=== PATIENT | female | born 1960 | race Caucasian/White ===

== ENCOUNTER 2018-11-07 17:03 | Inpatient (IN) | payer OTHER ==
[~2018-11-07] VITALS: Ht 162.6 cm; Wt 80.4 kg
[2018-11-07] MEDS ORDERED: SODIUM CHLORIDE 0.9% 1000ML 1,000 ML IV STA ×2 (17:11→18:27)
--- NOTE | 2018-11-07 17:20 | NUR ---
RECEIVED REPORT FROM BENJAMIN Duffy RN THAT PT HAD ARRIVED BY EMS INTO ER RM 11. WHEN I ENTERED ROOM TO ASSESS PT RESPIRATORY ARRIVED AT THE SAME TIME. THEY EXPLAINED TO THE PT THAT THE HAD ORDERED AN ABG AND THE PROCEDURE OF OBTAINING IT. PT BECAME HOSTILE AND YELLED AT RESPIRATORY "YOU'RE NOT STICKING ME". AFTER REPEATED REFUSALS RESPIRATORY NOTIFIED DR. LAST. WHEN I WAS TRYING TO ASK PATIENT ABOUT WHAT BROUGHT HER TO THE ER AND DO MY ASSESSMENT PT WAS VERY NON-COMPLIANT. SHE WOULD NOT ANSWER MOST OF MY QUESTIONS AND GET ANGRY AND YELL AT ME FOR ASKING HER QUESTIONS. I EXPLAINED TO HER THAT WE CANNOT PROPERLY TREAT HER COMPLAINTS IF WE DON'T KNOW EXACTLY WHAT IS GOING ON. PT VERY RUDE TO STAFF.
[2018-11-07 17:29] LABS: BASOPHILS % 0.2 % (0.0-1.0); EOSINOPHILS # (AUTO) 0.1 (0.0-0.4); EOSINOPHILS % 0.3 % (0.0-6.0); HEMATOCRIT 49.4 % (34.2-44.1); HEMOGLOBIN 18.2 g/dL (12.0-16.0); LYMPHOCYTES # (AUTO) 2.7 (1.0-3.2); LYMPHOCYTES % 15.3 % (18.0-39.1); MEAN CORPUSCULAR HEMOGLOBIN 33.8 pg (28-32); MEAN CORPUSCULAR HGB CONC 36.8 g/dL (31-35); MEAN CORPUSCULAR VOLUME 91.8 fL (81-99); MONOCYTES # (AUTO) 1.5 (0.2-0.8); MONOCYTES % 8.3 % (4.4-11.3); NEUTROPHILS # (AUTO) 13.2 (2.1-6.9); NEUTROPHILS % 75.4 % (38.7-80.0); PLATELET COUNT 324 x10e3/uL (140-360); RED BLOOD COUNT 5.38 x10e6/uL (3.6-5.1); RED CELL DISTRIBUTION WIDTH 11.5 % (11.7-14.4)
[2018-11-07] MEDS ORDERED: ONDANSETRON HCL INJ 2MG/ML 2ML 2 MG/ML VIAL IV NR (17:30)
--- NOTE | 2018-11-07 17:30 | NUR ---
DR. LAST ASKED ME TO GET THE URINE NOW. SHE SAID THAT SHE NEEDS TO FIND OUT IF PT IS IN DKA SO THAT WE CAN PROPERLY TREAT HER. PT STILL REFUSING. SHE YELLS "I DON'T HAVE NOTHING IN ME". I EXPLAINED TO HER THE IMPORTANCE OF THE URINE AND SHE SAID "YA'LL JUST WANT TO DRUG TEST ME". I DISCUSSED WITH HER THE OPTIONS OF ME ASSISTING HER TO THE RESTROOM, USING A BEDPAN, OR A STRAIGHT CATH. SHE STILL YELLED AT ME AND SAID THAT SHE IS NOT GOING TO PEE RIGHT NOW
--- NOTE | 2018-11-07 17:45 | NUR ---
I SPENT SOME TIME PATIENTLY LISTENING TO PATIENT AND BEING VERY KIND TO HER AND SHE STARTED BEING MORE COMPLAINT AND RELAXED. HER MOOD HAS CHANGED NOW SINCE I'VE BEEN SHOWING HER KINDNESS, CONCERN AND RESPECT. PT IS NOW POLITE AND COOPERATIVE AND WILL TALK AND SMILE. SHE STILL SAYS SHE FILLS A LITTLE DIZZY
[2018-11-07 17:49] LABS: ALANINE AMINOTRANSFERASE 20 IU/L (0-55); ALBUMIN 3.8 g/dL (3.5-5.0); ALBUMIN/GLOBULIN RATIO 1.1 (0.8-2.0); ALKALINE PHOSPHATASE 102 IU/L (40-150); ANION GAP 24.2 mmol/L (8-16); BLOOD UREA NITROGEN 28 mg/dL (7-26); BUN/CREATININE RATIO 30 (6-25); CALCIUM 9.9 mg/dL (8.4-10.2); CARBON DIOXIDE 18 mmol/L (22-29); CHLORIDE 90 mmol/L (98-107); CREATININE, SERUM 0.92 mg/dL (0.57-1.11); EST GLOMERULAR FILTRATION RATE > 60 ML/MIN (60-); GLUCOSE 392 mg/dL (74-118); SODIUM 127 mmol/L (136-145)
[2018-11-07] MEDS ORDERED: METFORMIN HCL500 MG PO (17:49)
[2018-11-07 17:55] LABS: POTASSIUM 5.2 mmol/L (3.5-5.1)
[2018-11-07] MEDS ORDERED: MAGNESIUM SULF 1GRAM/DEXTROSE 100 ML IV PRN (18:15)
[2018-11-07] MEDS ORDERED: INSULIN REGULAR, HUMAN 3ML VL 100 UNIT in SODIUM CHLORIDE 0.9% 99 ML IV SCH ×2 (18:15)
[2018-11-07] MEDS ORDERED: POTASSIUM CHLORIDE 20MEQ/100ML 200 ML IV PRN (18:15)
[2018-11-07] MEDS: CEFTRIAXONE SOD 1 GM/NS 50 ML 50 ML IV SCH (18:30)
--- NOTE | 2018-11-07 19:15 | NUR ---
PT READY TO URINATE. I ASSISTED HER WITH THE BEDPAN AND OBTAINED THE URINE. SHE ASKED FOR A DIAPER TO BE PLACED AND WE TOOK HER OUT OF HER CLOTHES AND INTO A GOWN. PT IS VERY KIND AND RESPECTFUL OF STAFF NOW. SHE IS VERY COOPERATIVE AND WILL SMILE SOME WHEN WE TALK. REPORT WAS GIVEN TO SEVERO Chandra RN FOR CONTINUATION OF CARE.
[2018-11-07] MEDS: SODIUM CHLORIDE 0.9% 1000ML 1,000 ML IV SCH ×3 (19:29→23:52)
[2018-11-07 19:53] LABS: CLARITY,URINE CLEAR (CLEAR); COLOR,URINE YELLOW (YELLOW); LEUKOCYTE ESTERASE ,URINE NEGATIVE (NEGATIVE); NITRITE,URINE POSITIVE (NEGATIVE)
[2018-11-07 19:54] LABS: BILIRUBIN,URINE NEGATIVE (NEGATIVE); KETONES,URINE 2+ (NEGATIVE); PROTEIN,URINE DIPSTICK NEGATIVE (NEGATIVE); URINE UROBILINOGEN 0.2 mg/dL (0.2 - 1)
[2018-11-07] MEDS ORDERED: ACETAMINOPHEN 325 MG TAB PO PRN (20:00)
[2018-11-07 20:39] LABS: EPITHELIAL CELLS,URINE MODERATE /LPF
[2018-11-07 20:41] LABS: BACTERIA,URINE FEW /HPF; RBC,URINE 0-5 /HPF (0-5); WBC,URINE (MAN) 21-50 /HPF (0-5)
[2018-11-07 21:00] VITALS: BP 116/71
--- NOTE | 2018-11-07 21:11 | Diagnostic Imaging Report ---
Examination: Single AP view of the chest. COMPARISON: None. INDICATION: Hyperosmolar syndrome, dizziness, nausea and vomiting IMPRESSION: 1. Lines and Tubes: None 2. Lungs are grossly clear. No consolidation or effusion. 3. Cardiomediastinal silhouette is normal. Pulmonary vasculature is normal. 4. No acute bony abnormalities. Signed by: Dr. Jareth Hogan M.D. on 11/07/2018 9:08 PM
[2018-11-07 21:13] VITALS: BP 116/71
[2018-11-07 21:16] VITALS: BP 150/75
[2018-11-07] MEDS: DEXTROSE 5%/0.45% SOD CHL 1,000 ML IV SCH (21:28)
[2018-11-07 21:35] LABS: ANION GAP 11.7 mmol/L (8-16); BLOOD UREA NITROGEN 20 mg/dL (7-26); BUN/CREATININE RATIO 34 (6-25); CARBON DIOXIDE 18 mmol/L (22-29); CHLORIDE 105 mmol/L (98-107); CREATININE, SERUM 0.58 mg/dL (0.57-1.11); EST GLOMERULAR FILTRATION RATE > 60 ML/MIN (60-); GLUCOSE 125 mg/dL (74-118); POTASSIUM 3.7 mmol/L (3.5-5.1); SODIUM 131 mmol/L (136-145)
[2018-11-07 21:40] LABS: CALCIUM 6.8 mg/dL (8.4-10.2)
[2018-11-07 21:47] LABS: MAGNESIUM 1.9 MG/DL (1.3-2.1)
[2018-11-07 21:54] LABS: CREATINE KINASE MB 1.5 ng/mL (0-5.0)
--- NOTE | 2018-11-07 21:59 | Diagnostic Imaging Report ---
EXAMINATION: CT of the abdomen and pelvis with contrast. TECHNIQUE: Spiral CT images of the abdomen and pelvis were performed from the lung bases to the lesser trochanters after the intravenous administration of 100 cc of Isovue 370 and the oral administration of water. Coronal and sagittal reformatted images were obtained. COMPARISON: None. CLINICAL HISTORY:Hyperosmolar syndrome, nausea and vomiting for 9 days, dizziness, loss of appetite DISCUSSION: ABDOMEN/PELVIS: LOWER THORAX:Unremarkable. HEPATOBILIARY: No focal hepatic lesions. No intra or extrahepatic biliary ductal dilation. GALLBLADDER: No radio-opaque stones or sludge. No wall thickening. SPLEEN: No splenomegaly. PANCREAS: No focal masses or ductal dilatation. ADRENALS: No adrenal nodules. KIDNEYS/URETERS: No hydronephrosis or solid mass lesions. 1.6 cm fluid density simple cyst in the left superior to mid aspect (series 2, image 23). 1.1 x 1.5 x 2.4 cm irregular shaped hyperdensity in the inferior pole of the right kidney (series 2, image 36 and sagittal image 42). The right kidney measures 7.7 cm in length. The left kidney measures 10.4 cm in length. PELVIC ORGANS/BLADDER: Bladder is unremarkable. Uterus unremarkable. No adnexal masses. PERITONEUM/RETROPERITONEUM: No free air or fluid. LYMPH NODES: No intra-abdominal, retroperitoneal, pelvic or inguinal lymphadenopathy. VESSELS: The celiac trunk,superior and inferior mesenteric and bilateral renal arteries are patent The portal, superior mesenteric and splenic veins are patent. Atherosclerotic calcification of the abdominal aorta, aortic branches and iliac vessels. GI TRACT: No bowel dilation or evidence of obstruction. No pericolonic inflammatory changes. Appendix is well identified and normal in caliber. BONES AND SOFT TISSUE: No aggressive lytic lesions. Multilevel degenerative disc changes in the lumbosacral spine, with mild lateral subluxation at L4-L5, intervertebral disc space narrowing L3-S1. No soft tissue abnormalities. IMPRESSION: 1. No acute abdominopelvic abnormalities. No bowel dilation or evidence of obstruction. No wall thickening or surrounding inflammatory changes. 2. Indeterminate irregularly shaped hyperdensity in the inferior pole of the right kidney, which is smaller in size than the left. This may represent a calcification in area of renal atrophy. Excreted contrast is less likely, as no contrast is noted in bilateral collecting systems. Negative given history for prior surgical procedures Signed by: Ludwig RossD. on 11/07/2018 9:56 PM
[2018-11-07 22:00] VITALS: BP 135/71
[2018-11-07] MEDS ORDERED: CALCIUM GLUCONATE 10% INJ 13.95 MEQ in SODIUM CHLORIDE 0.9% 100 ML 100 ML IV ONE (22:45)
[2018-11-07] MEDS ORDERED: CALCIUM GLUCONATE 10% INJ 0.465 MEQ/ML VIAL ONE ×2 (22:58→23:18)
[2018-11-07] MEDS ORDERED: SODIUM CHLORIDE 0.9% 100 ML ONE (22:59)
[2018-11-07 23:00] VITALS: BP 108/54
[2018-11-07] MEDS ORDERED: CALCIUM GLUCONATE 10% INJ 0.465 MEQ/ML VIAL IV ONE (23:16)
[2018-11-07 23:21] LABS: ANION GAP 9.9 mmol/L (8-16); BLOOD UREA NITROGEN 22 mg/dL (7-26); BUN/CREATININE RATIO 33 (6-25); CALCIUM 7.8 mg/dL (8.4-10.2); CARBON DIOXIDE 25 mmol/L (22-29); CHLORIDE 99 mmol/L (98-107); CREATININE, SERUM 0.66 mg/dL (0.57-1.11); EST GLOMERULAR FILTRATION RATE > 60 ML/MIN (60-); GLUCOSE 172 mg/dL (74-118); POTASSIUM 3.9 mmol/L (3.5-5.1); SODIUM 130 mmol/L (136-145)
[2018-11-07] MEDS ORDERED: INSULIN GLARGINE 100 UNITS/ML VIAL SQ SCH (23:45)
[2018-11-07 23:59] VITALS: BP 120/59
[2018-11-08] VITALS (21 sets, daily range): BP systolic 93–166; BP diastolic 47–129
[2018-11-08] MEDS: SODIUM CHLORIDE 0.9% 1000ML 1,000 ML IV SCH ×4 (01:40→12:18)
[2018-11-08] MEDS: DEXTROSE 5%/0.45% SOD CHL 1,000 ML IV SCH (04:09)
[2018-11-08] MEDS ORDERED: DEXTROSE 50% SYRINGE 50 ML IV PRN ×2 (05:00→07:15)
[2018-11-08 05:10] LABS: BASOPHILS # (AUTO) 0.1 (0.0-0.1); BASOPHILS % 0.3 % (0.0-1.0); EOSINOPHILS # (AUTO) 0.2 (0.0-0.4); EOSINOPHILS % 1.1 % (0.0-6.0); HEMATOCRIT 42.2 % (34.2-44.1); LYMPHOCYTES # (AUTO) 3.1 (1.0-3.2); LYMPHOCYTES % 18.3 % (18.0-39.1); MEAN CORPUSCULAR HEMOGLOBIN 33.3 pg (28-32); MEAN CORPUSCULAR HGB CONC 35.1 g/dL (31-35); MEAN CORPUSCULAR VOLUME 94.8 fL (81-99); MONOCYTES # (AUTO) 1.6 (0.2-0.8); NEUTROPHILS # (AUTO) 12.1 (2.1-6.9); NEUTROPHILS % 70.7 % (38.7-80.0); PLATELET COUNT 267 x10e3/uL (140-360); RED BLOOD COUNT 4.45 x10e6/uL (3.6-5.1); RED CELL DISTRIBUTION WIDTH 11.4 % (11.7-14.4)
[2018-11-08] MEDS ORDERED: ONDANSETRON HCL INJ 2MG/ML 2ML 2 MG/ML VIAL IV PRN (05:15)
[2018-11-08 05:39] LABS: ANION GAP 12.2 mmol/L (8-16); BLOOD UREA NITROGEN 16 mg/dL (7-26); BUN/CREATININE RATIO 24 (6-25); CALCIUM 8.6 mg/dL (8.4-10.2); CARBON DIOXIDE 23 mmol/L (22-29); CHLORIDE 95 mmol/L (98-107); CREATININE, SERUM 0.67 mg/dL (0.57-1.11); EST GLOMERULAR FILTRATION RATE > 60 ML/MIN (60-); GLUCOSE 204 mg/dL (74-118); HEMOGLOBIN 14.8 g/dL (12.0-16.0); MAGNESIUM 1.5 MG/DL (1.3-2.1); POTASSIUM 4.2 mmol/L (3.5-5.1); SODIUM 126 mmol/L (136-145)
[2018-11-08] MEDS ORDERED: SODIUM CHLORIDE 0.9% 50ML 50 ML ONE (05:39)
[2018-11-08] MEDS ORDERED: IOPAMIDOL 370 MG/ML 200 ML INFUS..BTL INJ ONE (05:39)
[2018-11-08 06:13] LABS: CREATINE KINASE MB 1.8 ng/mL (0-5.0)
[2018-11-08] MEDS ORDERED: HYDRALAZINE HCL 20 MG/ML VIAL IV PRN (07:00)
--- NOTE | 2018-11-08 07:20 | NUR ---
Pt received from previous shift resting in bed. Alert and oriented x4 with saline lock patent to right hand and right AC. Oriented to staff and surrounding. Advised to press call archer if help needed. Will monitor
[2018-11-08] MEDS ORDERED: INSULIN REGULAR, HUMAN 100 UNIT/1 ML 3ML VIAL SQ SCH (07:30)
[2018-11-08 07:43] LABS: FREE T4 (FREE THYROXINE) 0.93 ng/dL (0.9-1.8); THYROID STIMULATING HORMONE 0.521 uIU/mL (0.350-4.940)
--- NOTE | 2018-11-08 08:35 | NUR ---
All meds given as ordered. Pt stated that she takes Methadone 90mg, and provided empty container to prove. Emotional support given. 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 Will monitor
[2018-11-08] MEDS: FAMOTIDINE 20 MG TAB PO SCH ×2 (08:38→16:23)
[2018-11-08] MEDS: INSULIN REGULAR, HUMAN 100 UNIT/1 ML 3ML VIAL SQ SCH ×4 (08:39→20:47)
[2018-11-08] MEDS: INSULIN LISPRO 100 UNIT/1 ML 3ML VIAL SQ SCH ×3 (08:39→17:03)
--- NOTE | 2018-11-08 09:36 | NUR ---
Spoke to Yumi MATUTE regarding pt's Methadone. Gave order for Pain management consult (Dr. Trevino). Awaiting call back from
[2018-11-08] MEDS: METHADONE HCL 10 MG TAB PO SCH (10:05)
[2018-11-08] MEDS ORDERED: SODIUM CHLORIDE 1 GM TAB PO SCH (11:00)
[2018-11-08] MEDS ORDERED: CHLORASEPTIC SPRAY 177 ML BTL MM PRN (11:00)
[2018-11-08] MEDS: SUCRALFATE 1 GM/10 ML SUSP PO SCH ×3 (11:07→20:46)
[2018-11-08] MEDS: NICOTINE 21 MG/EA PATCH TOP SCH (11:15)
[2018-11-08] MEDS: METOCLOPRAMIDE HCL 10 MG/2ML VIAL IV SCH ×3 (11:15→20:46)
[2018-11-08 12:00] LABS: INFLUENZAE A&B ANTIGEN (RAPID) NEGATIVE (NEGATIVE); STREPTOCOCCUS GRP A ANTIGEN NEGATIVE (NEGATIVE)
--- NOTE | 2018-11-08 12:09 | NUR ---
Swallow evaluation done. Pt able to swallow well, but throat is sore. Flu & Strep swabs negative. All meds given as ordered. Will monitor
[2018-11-08 13:00] LABS: ANION GAP 9.3 mmol/L (8-16); BLOOD UREA NITROGEN 15 mg/dL (7-26); BUN/CREATININE RATIO 19 (6-25); CARBON DIOXIDE 25 mmol/L (22-29); CHLORIDE 95 mmol/L (98-107); CREATININE, SERUM 0.81 mg/dL (0.57-1.11); EST GLOMERULAR FILTRATION RATE > 60 ML/MIN (60-); GLUCOSE 322 mg/dL (74-118); POTASSIUM 4.3 mmol/L (3.5-5.1); SODIUM 125 mmol/L (136-145)
[2018-11-08 13:08] LABS: CREATINE KINASE MB 1.6 ng/mL (0-5.0)
--- NOTE | 2018-11-08 13:30 | NUR ---
Dr. Ludwig Valerio's service notified regarding consult. Will follow up
[2018-11-08] MEDS: ALBUTEROL/IPRATROPIUM 3 ML NEB NEB SCH ×2 (15:18→19:50)
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
[2018-11-08] MEDS: CEFTRIAXONE SOD 1 GM/NS 50 ML 50 ML IV SCH (17:20)
--- NOTE | 2018-11-08 17:20 | NUR ---
Pt educated regarding insulin injection. Pt verbalized understanding of teaching but will require reinforcement. Will endorse to next shift
--- NOTE | 2018-11-08 20:29 | Consultation ---
DATE OF CONSULTATION: Pulmonary Critical Care Consultation CHIEF COMPLAINT: Nausea, vomiting, and acidosis. HISTORY OF PRESENT ILLNESS: The patient is a 58-year-old woman with a history of czn-iglffes-onhohcmam diabetes and COPD. She uses an inhaler at home. She came into the ER, complaining of nausea and vomiting for several days. She had abdominal pain. She did have a fever upon presentation. She was found to have an elevated blood sugar and an anion gap. She was given IV insulin along with IV fluids and felt better. She still says she feels weak, but has no abdominal pain. She has no nausea or vomiting. PAST SURGICAL HISTORY: Noncontributory. PAST MEDICAL HISTORY: 1. Chronic pain, requiring methadone. 2. Ugo-wovrnae-ypqzigdhf diabetes. FAMILY HISTORY: Noncontributory. SOCIAL HISTORY: The patient is an active smoker. She is not a drinker. ALLERGIES: SHE IS ALLERGIC TO CIPROFLOXACIN. REVIEW OF SYSTEMS: The patient denies any fever or headache. She has no neck pain. She has no sore throat. She has no chest pain. She did have some abdominal pain. She has no nausea or vomiting, she did have nausea and vomiting on admission. She has no leg edema. PHYSICAL EXAMINATION: VITAL SIGNS: The patient is afebrile. The blood pressure is 150/76 and the saturation is 96% on room air. The pulse is 90. HEENT: Shows no facial swelling or erythema. The nasal mucosa is normal. The oropharynx is normal. LYMPHATIC: Shows no submandibular, cervical, or supraclavicular adenopathy. NECK: Shows no JVD or thyromegaly. There is no nuchal rigidity. CARDIAC: Reveals a regular rate and rhythm with normal S1, S2. There are no murmurs or rubs heard. LUNGS: Auscultation of lungs reveals rhonchorous breath sounds bilaterally. There is no wheezing. ABDOMEN: Soft, nontender. There is no rebound or guarding. EXTREMITIES: Show no leg edema or calf tenderness. There is no cyanosis or clubbing. SKIN: Shows no rashes. NEUROLOGIC: Shows no focal abnormalities. RADIOGRAPHIC DATA: CT scan of the abdomen and pelvis shows no acute changes. Chest x-ray shows no acute disease. LABORATORY DATA: Sodium is 125, and JRY-ap-yaxmjaimel ratio is normal. The blood sugar is 322. There is no anion gap at this time. White blood cell count is 17, hemoglobin is 14.8, and platelet count is 267. IMPRESSION: 1. Diabetic ketoacidosis. 2. Possible anion gap acidosis related to metformin. 3. Gastroenteritis. 4. Hyponatremia. 5. Chronic pain, requiring methadone. PLAN: 1. The patient has been switched to subcutaneous insulin. 2. Continue IV fluids. 3. Hold metformin. 4. Continue antibiotics and await final culture results. 5. Continue methadone. Tom Grullon MD [facility]/MODL /[id number]
[2018-11-08] MEDS: INSULIN GLARGINE 100 UNITS/ML VIAL SQ SCH (20:49)
--- NOTE | 2018-11-08 21:14 | Consultation ---
DATE OF CONSULTATION: 11/08/2018 Endocrine consultation. This is a patient of Dr. Lee. HISTORY OF PRESENT ILLNESS: Thank you very much for referring this patient. This is a 58-year-old white female, who was referred to me for evaluation of uncontrolled diabetes mellitus and diabetic ketoacidosis. The patient reported a known diabetic for almost 5-6 years and takes metformin at home. She came to the hospital with history of nausea, vomiting, and in the emergency room, her blood sugar was found to be 392, her anion gap was 24.2, and the sodium was 127. The patient is a chronic smoker. She also has history of mild hypertension. PHYSICAL EXAMINATION: GENERAL: Today, the patient is alert, awake, little bit apprehensive. She has mild wheezing. VITAL SIGNS: Her heart rate is around 78 and blood pressure is 130/80 mmHg. HEENT EXAMINATION: Essentially unremarkable. Thyroid is palpable. Clinically, she is near euthyroid. CHEST: Bilateral vesicular breathing. No rales. CARDIOVASCULAR: First and second heart sounds. There is no third third or fourth heart sound. EXTREMITIES: The patient has evidence of diabetic sensory neuropathy in both lower extremities and mild epigastric tenderness. CLINICAL IMPRESSION: 1. Diabetes mellitus type 2. 2. Diabetic ketoacidosis. 3. Chronic obstructive pulmonary disease. 4. Chronic smoker. PLAN: At this time is to taper off the insulin drip. Start on the subcu insulin. Monitor HER blood sugars closely and adjust insulin dose. The patient needs extensive diabetic and dietary education as well. Thank you for referring this patient. I will be following this patient with you. MD CHRIS Marx/NESTOR /[id number] LANDY
--- NOTE | 2018-11-08 21:30 | NUR ---
received pt to room 289, no resp distress, pt requesting to go outside to smoke cigarette, pt informed of facility smoke policy, pt yelled "this is a hospital not a fdc ill just leave", informed pt that i will call doctor and be back to room, call light place in reach
--- NOTE | 2018-11-08 21:59 | NUR ---
On the phone with Mike Carrasco notifying him of pt wanting to leave facility when i received call from [facility] that there is a pt downstairs attempting to leave, went downstairs pt outside smoking cigarette with iv pole and [address], asked pt if she was going to come back inside pt stated "yeah when im done with my cigarette", informed pt that if she did intend on leaving i would need to remove ivs, pt stated "just leave me alone for a minute, ashley been cooped up in there for days i need some air", security with pt, informed
--- NOTE | 2018-11-08 22:08 | NUR ---
PT TRANSFERED TO RM 289, REPORT GIVEN TO NURSE SAHA. PT STABLE DENIES ANY CONCERNS AT THIS TIME.
--- NOTE | 2018-11-08 23:53 | NUR ---
information technology intern called that pt is off tele, went to pt room and pt had removed tele box and was in shower with IV pole, asked pt to let us know when she is done so that we may place tele back on pt., pt stated "ok"
[2018-11-09] VITALS: BP 124/66
[2018-11-09] MEDS: ALBUTEROL/IPRATROPIUM 3 ML NEB NEB SCH ×4 (01:12→19:45)
[2018-11-09] MEDS: SODIUM CHLORIDE 0.9% 1000ML 1,000 ML IV SCH (02:25)
--- NOTE | 2018-11-09 04:31 | NUR ---
pt refusing IV fluid stated "i dont need it so disconnect me", disconnected from IV fluid, call light in reach
--- NOTE | 2018-11-09 05:45 | NUR ---
pt off tele monitor, attempted to place tele monitor back on and pt refusing to have it placed
[2018-11-09 05:48] LABS: BASOPHILS % 0.1 % (0.0-1.0); EOSINOPHILS # (AUTO) 0.1 (0.0-0.4); EOSINOPHILS % 0.8 % (0.0-6.0); HEMATOCRIT 38.2 % (34.2-44.1); HEMOGLOBIN 13.9 g/dL (12.0-16.0); LYMPHOCYTES # (AUTO) 3.6 (1.0-3.2); LYMPHOCYTES % 23.9 % (18.0-39.1); MEAN CORPUSCULAR HEMOGLOBIN 33.8 pg (28-32); MEAN CORPUSCULAR HGB CONC 36.4 g/dL (31-35); MEAN CORPUSCULAR VOLUME 92.9 fL (81-99); MONOCYTES # (AUTO) 1.3 (0.2-0.8); MONOCYTES % 8.7 % (4.4-11.3); NEUTROPHILS % 65.9 % (38.7-80.0); PLATELET COUNT 294 x10e3/uL (140-360); RED BLOOD COUNT 4.11 x10e6/uL (3.6-5.1); RED CELL DISTRIBUTION WIDTH 11.4 % (11.7-14.4)
[2018-11-09 06:07] LABS: ANION GAP 9.6 mmol/L (8-16); BLOOD UREA NITROGEN 10 mg/dL (7-26); BUN/CREATININE RATIO 14 (6-25); CALCIUM 8.6 mg/dL (8.4-10.2); CARBON DIOXIDE 28 mmol/L (22-29); CHLORIDE 97 mmol/L (98-107); CREATININE, SERUM 0.72 mg/dL (0.57-1.11); EST GLOMERULAR FILTRATION RATE > 60 ML/MIN (60-); GLUCOSE 188 mg/dL (74-118); MAGNESIUM 1.6 MG/DL (1.3-2.1); POTASSIUM 3.6 mmol/L (3.5-5.1); SODIUM 131 mmol/L (136-145)
[2018-11-09 07:30] VITALS: BP 140/66
--- NOTE | 2018-11-09 07:30 | NUR ---
PT OUT OF ROOM
[2018-11-09] MEDS: METOCLOPRAMIDE HCL 10 MG/2ML VIAL IV SCH ×4 (08:00→20:36)
[2018-11-09] MEDS: INSULIN LISPRO 100 UNIT/1 ML 3ML VIAL SQ SCH ×3 (08:00→16:32)
[2018-11-09] MEDS: FAMOTIDINE 20 MG TAB PO SCH ×2 (08:20→16:53)
[2018-11-09] MEDS: SUCRALFATE 1 GM/10 ML SUSP PO SCH ×4 (08:20→20:36)
[2018-11-09] MEDS: METHADONE HCL 10 MG TAB PO SCH (08:24)
[2018-11-09] MEDS: NICOTINE 21 MG/EA PATCH TOP SCH (08:24)
[2018-11-09] MEDS: INSULIN REGULAR, HUMAN 100 UNIT/1 ML 3ML VIAL SQ SCH ×4 (08:26→21:00)
--- NOTE | 2018-11-09 08:30 | NUR ---
PT UP IN BED NO DISTRESS JNOTED,PT REFUSED NICODERM PATCH,STATED SHE WAS GONG OUT TO SMOKE EXPLAINED TO PT WE ARE A NON SMOKING FACILITY AND SHE COULD NOT SMOKE HERE,PT STATED SHE WILL GO SMOKE WHEN SHE WANTS WE COLUD NOT KEEP HER FROM IT,ALSO EXPLAINED SHE COULD NOT LEAVE THE PREMISES,STILL STATED SHE WOULD GO SMOKE.
[2018-11-09 08:58] VITALS: BP 140/66
[2018-11-09] MEDS ORDERED: SUCRALFATE1 G/10 ML PO (09:04)
[2018-11-09] MEDS ORDERED: REGLAN10 MG PO (09:04)
[2018-11-09] MEDS ORDERED: PANTOPRAZOLE SO40 MG PO (09:04)
[2018-11-09] MEDS ORDERED: PROAIR HFA INH8.5 GM INH (09:17)
[2018-11-09 12:19] VITALS: BP 138/60
--- NOTE | 2018-11-09 12:30 | NUR ---
PT AMBULATING DOWNSTAIRS TO SMOKE EXPLAINED TO PT SHE COULD NOT SMOKE ON PREMISES STAED IT WAS NOT AGAINST THE LAW AND SHE WAS GOING TO DO IT.
[2018-11-09 16:08] VITALS: BP 130/59
--- NOTE | 2018-11-09 16:13 | NUR ---
Nutrition Screen Note RD Recommendation for Physician: - Continue current diet - Diet education provided 11/09 Plan of Care: RD following, monitoring for tolerance and adequacy Nutrition reason for involvement: MD Consult- DM diet education Primary Diagnose(s): DKA, N/V, acidosis PMH: DM2, COPD Ht: 64 in Wt: 161 lb BMI: 27.7 kg/m2 IBW: [address] Assessment: (11/09) 58 YOF admitted for DKA, seen today per MD consult for DM diet education. Pt discussed during am rounds. Pt reports N/V has resolved and is eating well currently. Pt reports UBW of 160-180#, denies wt loss. Pt receptive to diet education at time of visit. Educated pt on CHO sources, CHO serving sizes, foods to avoid and appropriate substitutions. Handouts provided. Chart reviewed. Labs and meds reviewed, noted A1C of 11.4 yesterday. Will monitor and continue to follow. Current Diet: 1800 ADA Malnutrition Evaluation (11/09/18) The patient does not meet criteria for a specified degree of malnutrition at this time. Will re-evaluate at follow-up as appropriate. Diet Education Needs Assessment: Diet education indicated, provided 11/09/18. Learner(s): pt Barriers: none Cultural/Language Modifications: none Readiness: ready Method: handouts, discussion Topics: DM2 nutrition therapy Understanding/Compliance: fair Nutrition Care Level: Low Signed: Annika Nuñez RD, LD, [facility]
--- NOTE | 2018-11-09 16:15 | NUR ---
PT AMBULATING DOWN STAIRS
--- NOTE | 2018-11-09 16:55 | NUR ---
PT REFUSED SCHEDULED INSULIN,STATED BS TO LOW,EXPLAINED TO HER IT WAS NOT TO LOW IN WOULD HELP MAINTAIN NORMAL LEVEL ,STILL REFUSED,
[2018-11-09] MEDS: CEFTRIAXONE SOD 1 GM/NS 50 ML 50 ML IV SCH (18:15)
[2018-11-09 20:00] VITALS: BP 124/60
[2018-11-09] MEDS: INSULIN GLARGINE 100 UNITS/ML VIAL SQ SCH (21:00)
[2018-11-10] VITALS: BP 136/63
[2018-11-10 00:03] VITALS: BP 124/60
[2018-11-10] MEDS: ALBUTEROL/IPRATROPIUM 3 ML NEB NEB SCH ×3 (00:45→13:00)
[2018-11-10 04:00] VITALS: BP 130/60
[2018-11-10 06:08] LABS: BASOPHILS % 0.3 % (0.0-1.0); EOSINOPHILS # (AUTO) 0.1 (0.0-0.4); HEMATOCRIT 36.9 % (34.2-44.1); HEMOGLOBIN 12.6 g/dL (12.0-16.0); LYMPHOCYTES # (AUTO) 2.9 (1.0-3.2); LYMPHOCYTES % 25.4 % (18.0-39.1); MEAN CORPUSCULAR HEMOGLOBIN 33.1 pg (28-32); MEAN CORPUSCULAR HGB CONC 34.1 g/dL (31-35); MEAN CORPUSCULAR VOLUME 96.9 fL (81-99); MONOCYTES # (AUTO) 1.1 (0.2-0.8); MONOCYTES % 9.4 % (4.4-11.3); NEUTROPHILS # (AUTO) 7.2 (2.1-6.9); NEUTROPHILS % 63.5 % (38.7-80.0); PLATELET COUNT 291 x10e3/uL (140-360); RED BLOOD COUNT 3.81 x10e6/uL (3.6-5.1); RED CELL DISTRIBUTION WIDTH 11.6 % (11.7-14.4)
[2018-11-10 06:44] LABS: ANION GAP 9.6 mmol/L (8-16); BLOOD UREA NITROGEN 10 mg/dL (7-26); BUN/CREATININE RATIO 13 (6-25); CALCIUM 8.8 mg/dL (8.4-10.2); CARBON DIOXIDE 33 mmol/L (22-29); CHLORIDE 94 mmol/L (98-107); CREATININE, SERUM 0.75 mg/dL (0.57-1.11); EST GLOMERULAR FILTRATION RATE > 60 ML/MIN (60-); GLUCOSE 230 mg/dL (74-118); MAGNESIUM 1.7 MG/DL (1.3-2.1); POTASSIUM 3.6 mmol/L (3.5-5.1); SODIUM 133 mmol/L (136-145)
[2018-11-10 07:15] VITALS: BP 152/65
--- NOTE | 2018-11-10 07:15 | NUR ---
PATIENT AMBULATING IN HALLWAY TO GET COFFEE, NO DISTRESS NOTED. WILL CLOSELY MONITOR.
[2018-11-10] MEDS: INSULIN REGULAR, HUMAN 100 UNIT/1 ML 3ML VIAL SQ SCH ×2 (07:30→11:30)
[2018-11-10 07:32] VITALS: BP 152/65
[2018-11-10] MEDS: METOCLOPRAMIDE HCL 10 MG/2ML VIAL IV SCH ×2 (07:50→11:30)
[2018-11-10] MEDS: FAMOTIDINE 20 MG TAB PO SCH (07:50)
[2018-11-10] MEDS: SUCRALFATE 1 GM/10 ML SUSP PO SCH ×2 (07:50→11:30)
[2018-11-10] MEDS: INSULIN LISPRO 100 UNIT/1 ML 3ML VIAL SQ SCH ×2 (08:00→12:00)
[2018-11-10] MEDS: METHADONE HCL 10 MG TAB PO SCH (08:00)
[2018-11-10] MEDS: NICOTINE 21 MG/EA PATCH TOP SCH (09:00)
[2018-11-10] MEDS ORDERED: BACTRIM DS TAB1 EACH PO (09:29)
[2018-11-10] MEDS ORDERED: ONDANSETRON HCL 4 MG ORAL DISINTEGRATING TAB PO PRN (10:15)
[2018-11-10 11:04] VITALS: BP 179/73
--- NOTE | 2018-11-10 12:04 | NUR ---
PATIENT HAS A DISCHARGE ORDER. AWAITING FOR DR ANGELES TO SEE PATIENT AND GIVE PRESCRIPTION. SITTING AT BED SIDE EATING LUNCH, CALL LIGHT AT REACH.
--- NOTE | 2018-11-10 14:10 | NUR ---
DR ANGELES IN TO SEE PATIENT, PRESCRIPTIONS RECEIVED. PATIENT EDUCATED ON INSULIN SELF ADMINISTRATION WITH RETURN DEMONSTRATION.
--- NOTE | 2018-11-10 14:45 | NUR ---
PATIENT DISCHARGED HOME. DISCHARGE INSTRUCTIONS, PRESCRIPTIONS, AND FOLLOW UP GIVEN TO PATIENT, SHE VERBALIZED UNDERSTANDING. ALL PERSONAL ITEMS TAKEN WITH PATIENT. IV TO RIGHT AC REMOVED WITH TIP INTACT. LEFT UNIT PER WHEEL CHAIR TO FRONT LOBBY IN STABLE CONDITION.
[2018-11-10] MEDS ORDERED: INSULIN GLARGINE 100 UNITS/ML VIAL SQ SCH (21:00)
--- NOTE | 2018-11-11 05:02 | Discharge Summary ---
ADMISSION DIAGNOSES: Diabetic ketoacidosis, chronic obstructive pulmonary disease, urinary tract infection, hyponatremia, nausea, vomiting with sore throat, tobacco use. DISCHARGE DIAGNOSES: Diabetic ketoacidosis, chronic obstructive pulmonary disease, urinary tract infection, hyponatremia, nausea, vomiting with sore throat, tobacco use, urinary tract infection with Enterobacter. Rule out strep. Rule out flu. HISTORY: The patient has a history of type 2 diabetes, COPD, and CVA with left-sided deficit, which has resolved. SURGICAL HISTORY: None. FAMILY HISTORY: The patient's dad had diabetes. The patient's dad and brother had a stroke. SOCIAL HISTORY: The patient admits to smoking 2 packs of cigarettes a day for 47 years. She also admits to a history of addiction to pills, so she uses methadone currently. HOSPITAL COURSE: A 58-year-old female complains of nausea, vomiting, chills, and sore throat for 9 days. She denies fever, diarrhea, dysuria, and hematuria. On admission, patient's blood sugar was 392 and her anion gap was 24. She was initially put on an insulin drip. Endocrinology was consulted. She was given IV fluids. She was started on Rocephin for UTI. Flu was negative. Strep was negative. Blood cultures negative. Urine culture came back positive for Enterobacter. The patient was started on Pepcid, sucralfate, Reglan, and Chloraseptic for her abdominal pain and nausea as well as sore throat. She says both helped immensely. The patient was weaned off the IV insulin and was started on subcu insulin per Endocrinology. The patient continued to change her story throughout hospitalization about her diagnoses. She appeared to get very agitated at times and did not listen to recommendations. She refused medication. She went outside to smoke despite hospital policies. She was very confrontational. At time of discharge, the patient was given a prescription for albuterol inhaler, Reglan, Protonix, sucralfate, Bactrim DS, Lantus 35 units at bedtime, and Humalog 15 units with each meal per Endocrinology recommendation. The patient understands discharge instructions and agrees to plan. Vital signs stable, patient afebrile. Dictated by Yumi Campbell NP MD LEORA Cox/MODL /[id number]
== END 2018-11-10 14:53 | disposition home or self-care (01) | DRG 638 ==
LOC: ER 17:03 → ERHOLD 19:49 → ICU 21:15 → MED/SURG3 11-08 21:43
PROVIDERS: ADMIT Internal Medicine; ATTEND Internal Medicine
DX: E11.10 Type 2 diabetes mellitus with ketoacidosis without coma (principal); I69.354 Hemiplegia and hemiparesis following cerebral infarction affecting left non-dominant side; N39.0 Urinary tract infection, site not specified; E87.1 Hypo-osmolality and hyponatremia; K52.9 Noninfective gastroenteritis and colitis, unspecified; F17.210 Nicotine dependence, cigarettes, uncomplicated; Z88.1 Allergy status to other antibiotic agents; J44.9 Chronic obstructive pulmonary disease, unspecified; G89.4 Chronic pain syndrome; Z79.891 Long term (current) use of opiate analgesic; Z79.84 Long term (current) use of oral hypoglycemic drugs; I10 Essential (primary) hypertension; E11.42 Type 2 diabetes mellitus with diabetic polyneuropathy; B96.89 Other specified bacterial agents as the cause of diseases classified elsewhere; J02.9 Acute pharyngitis, unspecified
CPT/HCPCS: 36415; 71045; 74177; 80048; 80053; 81001; 82550; 82553; 82948; 83036; 83518; 83690; 83735; 83880; 84439; 84443; 84484; 85025; 87040; 87070; 87086; 87186; 87400; 94640; 96361; 99285; J0610; J0696; J1815; J2405; J2765; J7030; J7050; Q9967

== ENCOUNTER 2019-01-02 21:16 | Emergency (ER) | payer OTHER ==
[~2019-01-02] VITALS: Ht 162.6 cm; Wt 80.3 kg
[~2019-01-02 21:16] MED LIST: BACTRIM DS TAB1 EACH PO; METFORMIN HCL500 MG PO; PANTOPRAZOLE SO40 MG PO; PROAIR HFA INH8.5 GM INH; REGLAN10 MG PO; SUCRALFATE1 G/10 ML PO
--- OUTSIDE RECORDS SUMMARY | 2019-01-02 21:19 | XMS REPORT ---
[facility] Address Unknown Phone Unavailable Care Team Providers Care Tc Operator Name Role Phone DILMA IRVING Unavailable Unavailable Problems This patient has no known problems. Allergies, Adverse Reactions, Alerts This patient has no known allergies or adverse reactions. Medications This patient has no known medications. Results Test Description Test Time Test Comments Text Results Atomic Results Result Comments CT ABDOMEN/PELVIS W 2018-11-07 21:46:00 [place] [address] Patient Name: AILYN ULRICH MR #: [id number] : 1960 Age/Sex: 58/F Req #: [id number] Adm Physician: DILMA IRVING MD Ordered by: JACQUELINE MENJIVAR MD Report #: [id number] Location: ICU Room/Bed: ICU [facility] Procedure: [id number] CT/CT ABDOMEN/PELVIS W Exam Date: 11/07/18 Exam Time: 2044 REPORT STATUS: Signed EXAMINATION: CT of the abdomen and pelvis with contrast . TECHNIQUE: Spiral CT images of the abdomen and pelvis were performed from the lung bases to the lesser trochanters after the intravenous administration of 100 cc of Isovue 370 and the oral administration of water. Coronal and sagittal reformatted images were obtained. COMPARISON: None. CLINICAL HISTORY:Hyperosmolar syndrome, nausea and vomiting for 9 days, dizziness, loss of appetite DISCUSSION: ABDOMEN/PELVIS: LOWER THORAX:Unremarkable. HEPATOBILIARY: No focal hepatic lesions. No intra or extrahepatic biliary ductal dilation. GALLBLADDER: No radio- opaque stones or sludge. No wall thickening. SPLEEN: No splenomegaly. PANCREAS: No focal masses or ductal dilatation. ADRENALS: No adrenal nodules. KIDNEYS/URETERS: No hydronephrosis or solid mass lesions. 1.6 cm fluid density simple cyst in the left superior to mid aspect (series 2, image 23). 1.1 x 1.5 x 2.4 cm irregular shaped hyperdensity in the inferior pole of the right kidney (series 2, image 36 and sagittal image 42). The right kidney measures 7.7 cm in length. The left kidney measures 10.4 cm in length. PELVIC ORGANS/BLADDER: Bladder is unremarkable. Uterus unremarkable. No adnexal masses. PERITONEUM/RETROPERITONEUM: No free air or fluid. LYMPH NODES: No intra-abdominal, retroperitoneal, pelvic or inguinal lymphadenopathy. VESSELS: The celiac trunk,superior and inferior mesenteric and bilateral renal arteries are patent The portal, superior mesenteric and splenic veins are patent. Atherosclerotic calcification of the abdominal aorta, aortic branches and iliac vessels. GI TRACT: No bowel dilation or evidence of obstruction. No pericolonic inflammatory changes. Appendix is well identified and normal in caliber. BONES AND SOFT TISSUE: No aggressive lytic lesions. Multilevel degenerative disc changes in the lumbosacral spine, with mild lateral subluxation at L4-L5, intervertebral disc space narrowing L3-S1. No soft tissue abnormalities. IMPRESSION: 1. No acute abdominopelvic abnormalities. No bowel dilation or evidence of obstruction. No wall thickening or surrounding inflammatory changes. 2. Indeterminate irregularly shaped hyperdensity in the inferior pole of the right kidney, which is smaller in size than the left. This may represent a calcification in area of renal atrophy. Excreted contrast is less likely, as no contrast is noted in bilateral collecting systems. Negative given history for prior surgical procedures Signed by: Dr. Salomón Hogan M.D. on 11/07/2018 9:56 PM Dictated By: SALOMÓN HOGAN MD 55 Transcribed By: SANDHYA on 11/07/182155 COPY TO: JACQUELINE MENJIVAR MD CHEST SINGLE (PORTABLE) 2018-11-07 21:07:00 [address], [place] [address] Patient Name: AILYN ULRICH MR #: [id number] : 1960 Age/Sex: 58/F Req #: [id number] Adm Physician: DILMA IRVING MD Ordered by: JACQUELINE MENJIVAR MD Report #: [id number] Location: [facility] Room/Bed: [place] [address] Procedure: [id number] DX/CHEST SINGLE (PORTABLE) Exam Date: 11/07/18 Exam Time: 2049 REPORT STATUS: Signed Examination: Single AP view of the chest. COMP ARISON: None. INDICATION: Hyperosmolar syndrome, dizziness, nausea and vomiting IMPRESSION: 1. Lines and Tubes: None 2. Lungs are grossly clear. No consolidation or effusion. 3. Cardiomediastinal silhouette is normal. Pulmonary vasculature is normal. 4. No acute bony abnormalities. Signed by: Dr. Salomón Hogan M.D. on 11/07/2018 9:08 PM Dictated By: SALOMÓN HOGAN MD 07 Transcribed By: SANDHYA on 11/07/182107 COPY TO: JACQUELINE MENJIVAR MD
[2019-01-02] MEDS ORDERED: SODIUM CHLORIDE 0.9% 1000ML 1,000 ML IV ONE (21:30)
[2019-01-02 22:02] LABS: BASOPHILS % 0.3 % (0.0-1.0); EOSINOPHILS % 0.1 % (0.0-6.0); HEMATOCRIT 44.5 % (34.2-44.1); HEMOGLOBIN 15.7 g/dL (12.0-16.0); LYMPHOCYTES # (AUTO) 2.1 (1.0-3.2); LYMPHOCYTES % 14.1 % (18.0-39.1); MEAN CORPUSCULAR HEMOGLOBIN 34.1 pg (28-32); MEAN CORPUSCULAR HGB CONC 35.3 g/dL (31-35); MEAN CORPUSCULAR VOLUME 96.5 fL (81-99); MONOCYTES # (AUTO) 0.9 (0.2-0.8); MONOCYTES % 5.9 % (4.4-11.3); NEUTROPHILS # (AUTO) 11.6 (2.1-6.9); NEUTROPHILS % 79.3 % (38.7-80.0); PLATELET COUNT 307 x10e3/uL (140-360); RED BLOOD COUNT 4.61 x10e6/uL (3.6-5.1); RED CELL DISTRIBUTION WIDTH 11.7 % (11.7-14.4)
[2019-01-02 22:20] LABS: ALANINE AMINOTRANSFERASE 17 IU/L (0-55); ALBUMIN 4.2 g/dL (3.5-5.0); ALBUMIN/GLOBULIN RATIO 1.2 (0.8-2.0); ALKALINE PHOSPHATASE 74 IU/L (40-150); ANION GAP 21.7 mmol/L (8-16); BLOOD UREA NITROGEN 12 mg/dL (7-26); BUN/CREATININE RATIO 14 (6-25); CALCIUM 9.5 mg/dL (8.4-10.2); CARBON DIOXIDE 23 mmol/L (22-29); CHLORIDE 93 mmol/L (98-107); CREATINE KINASE 99 IU/L (29-168); CREATININE, SERUM 0.84 mg/dL (0.57-1.11); EST GLOMERULAR FILTRATION RATE > 60 ML/MIN (60-); GLUCOSE 283 mg/dL (74-118); POTASSIUM 3.7 mmol/L (3.5-5.1); SODIUM 134 mmol/L (136-145)
[2019-01-02 22:21] LABS: AMYLASE 27 U/L (25-125); LIPASE 8 U/L (8-78)
[2019-01-02 22:53] LABS: BILIRUBIN,URINE NEGATIVE (NEGATIVE); CLARITY,URINE CLOUDY (CLEAR); COLOR,URINE YELLOW (YELLOW); LEUKOCYTE ESTERASE ,URINE NEGATIVE (NEGATIVE); NITRITE,URINE POSITIVE (NEGATIVE); URINE UROBILINOGEN 0.2 mg/dL (0.2 - 1)
[2019-01-02 22:56] LABS: KETONES,URINE 3+ (NEGATIVE); PROTEIN,URINE DIPSTICK 3+ (NEGATIVE)
[2019-01-02 23:12] LABS: BACTERIA,URINE MANY /HPF; EPITHELIAL CELLS,URINE FEW /LPF; WBC,URINE (MAN) >50 /HPF (0-5)
--- NOTE | 2019-01-02 23:44 | Diagnostic Imaging Report ---
EXAM: Chest and abdominal radiographs 2 views INDICATION: Nausea, vomiting COMPARISON: Abdominal CT 11/07/2018. FINDINGS: Lungs are well expanded and clear. No consolidations. Normal heart size. Aortic arch calcifications. The thoracic bones and soft tissues are unremarkable. No pleural effusion or pneumothorax. A 3.1 cm calculus in the right mid abdomen corresponds to the right renal calculus identified on abdominal CT 11/07/2018. No dilated loops of small bowel. No abnormal soft tissue masses. Nonobstructive bowel gas pattern. No pneumoperitoneum. There are degenerative changes in the lumbar spine and pelvis. IMPRESSION: 1. No acute thoracic abnormality. 2. A 3.1 cm right renal calculus also seen on abdominal CT 11/07/2018. 3. Nonobstructive bowel gas pattern. Signed by: Jhonny Westbrook DO on 01/02/2019 11:40 PM
[2019-01-03] MEDS ORDERED: CEFTRIAXONE SOD 1 GM/NS 50 ML 50 ML IV ONE
== END 2019-01-03 00:30 | disposition home or self-care (01) ==
LOC: ER 21:16
DX: R11.2 Nausea with vomiting, unspecified (principal); N30.90 Cystitis, unspecified without hematuria; E11.9 Type 2 diabetes mellitus without complications; F17.210 Nicotine dependence, cigarettes, uncomplicated
CPT/HCPCS: 36415; 74022; 80053; 81001; 82150; 82550; 82553; 83690; 84484; 85025; 93005; 96365; 99283; J0696; J7030

== ENCOUNTER 2020-02-13 04:58 | Emergency (ER) | payer OTHER ==
[~2020-02-13] VITALS: Ht 162.6 cm; Wt 80.3 kg
[2020-02-13] MEDS ORDERED: SODIUM CHLORIDE 0.9% 1000ML 1,000 ML IV STA ×3 (05:06→05:59)
[2020-02-13] MEDS ORDERED: ONDANSETRON HCL INJ 2MG/ML 2ML 2 MG/ML VIAL IV STA (05:06)
--- OUTSIDE RECORDS SUMMARY | 2020-02-13 05:23 | XMS REPORT | Continuity of Care Document ---
Author Author [facility] t Organization [facility] Address [address] [place] [address] Phone Unavailable Care Team Providers Care Blending Coordinator Name Role Phone NO, PCP PCP Unavailable Rich BEST Attphys Unavailable DILMA IRVING Attphys Unavailable DILMA IRVING Admphys Unavailable Payers Payer Name Policy Type Policy Number Effective Date Expiration Date Engagor [id number] 2018 00:00 :00 [facility] Problems Condition Name Condition Details Condition Category Status Onset Date Resolution Date Last Treatment Date Treating Clinician Comments Source 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 Ordering Clinician Indication Dosage Frequency Signature (SIG) Comments Components Source Sulfamethoxazole/Trimethoprim (Bactrim Ds Tablet) 1 Ea ch Tablet Sulfamethoxazole/Trimethoprim (Bactrim Ds Tablet) 1 Each Tablet 2018-11-10 00:00:00 Yes Yumi Campbell [employer] 1 Twice A Day [facility] Albuterol Sulfate (Proair Hfa Inhaler*) 8.5 Gm Inh Alb uterol Sulfate (Proair Hfa Inhaler*) 8.5 Gm Inh 2018-11-09 00:00:00 Yes Yumi Campbell [employer] 1 Every 8 Hours as needed for Shortness Of Breath [facility] Metoclopramide Hcl (Reglan) 10 Mg Tablet Metoclopramid e Hcl (Reglan) 10 Mg Tablet 2018-11-09 00:00:00 Yes Yumi Campbell [employer] 10 Before Meals And At Bedtime [facility] Pantoprazole Sodium (Protonix) 40 Mg Tablet. Pantopr azole Sodium (Protonix) 40 Mg Tablet. 2018-11-09 00:00:00 Yes Yumi Campbell [employer] 40 Before Breakfast [facility] Sucralfate 1 G/10 Ml Susp Sucralfate 1 G/10 Ml Susp 2018-11-09 00:00: 00 Yes Yumi Campbell [employer] 1 Before Meals And At Bedtime [facility] Metformin Hcl 500 Mg Tablet, 500 Mg Oral Metformin Hcl 500 Mg Tablet, 500 Mg Oral 2018-11-09 00:00:00 No 500 Twice A Day [facility] Procedures Procedure Date / Time Performed Performing Clinician [facility] e Computed tomography of abdomen and pelvis with contrast 2018 00:00:00 JACQUELINE MENJIVAR [facility] Encounters Start Date/Time End Date/Time En[facility] Source 2019-01-02 21:16:00 2019-01-03 00:30:00 Departed Emergency Room 1 JC BEST [facility] [id number] [facility] 2018-11-07 19:49:00 2018-11-10 14:53:00 Discharged Inpatient 1 DILMA IRVING [facility] [id number] [facility] Results Test Description Test Time Test Comments Results Result Comments Source GLUBED 2019-03-03 07:44:00 Test Item GLUBED (test code = GLUBED) 150 mg/dL 74-106 H Performed by certified dry house operator at [facility] [id number] 07:44:00* Test Item Value Reference Range Interpretation Comments GLUBED (test code = GLUBED) 370 mg/dL 74-106 H Performed by certified dry house operator at [facility] [id number] 17:17:00* Test Item Value Reference Range Interpretation Comments GLUBED (test code = GLUBED) 379 mg/dL 74-106 H [facility]~ [id number] 08:14:00* Test Item Value Reference Range Interpretation Comments GLUBED (test code = GLUBED) 322 mg/dL 74-106 H Performed by certified dry house operator at [facility] AB [id number] 07:43:00* Test Item Value Reference Range Interpretation Comments AB TREPONEMA (test code = TREPAB) Nonreactive Index NonReactive BASIC METABOLIC [id number] 07:18:00* Test Item Value Reference Range Interpretation Comments SODIUM (test code = NA) 133 mmol/L 136-145 L POTASSIUM (test code = K) 3.8 mmol/L 3.5-5.1 N CHLORIDE (test code = CL) 97.0 mmol/L 98-107 L CARBON DIOXIDE (test code = CO2) 25.0 mmol/L 21-32 N ANION GAP (test code = GAP) 14.8 10-20 N GLUCOSE (test code = GLU) 263 mg/dL 74-106 H BLOOD UREA NITROGEN (test code = BUN) 22 mg/dL 7-18 H RESULT VERIFIED BY REPEAT ANALYSIS GLOMERULAR FILTRATION RATE (test code = GFR) > 60 mL/min >=60 Estimated GFR by using Modified MDRD formula.Chronic kidney disease is defined as either kidney damageor GFR <60 mL/min/1.73 m2 for >3 months. CREATININE (test code = CREAT) 0.90 mg/dL 0.55-1.02 N Note change in reference range due to change in reagent. BUN/CREATININE RATIO (test code = BUN/CREA) 24.4 10-20 H CALCIUM (test code = CA) 8.9 mg/dL 8.5-10.1 N TSH REFLEX TO [id number] 07:18:00* Test Item Value Reference Range Interpretation Comments TSH REFLEX TO FT4 (test code = TSHREFLEX) 0.3 0.4-5.5 L [id number] 07:13:00* Test Item Value Reference Range Interpretation Comments GLYCOSYLATED HEMOGLOBIN (HA1C) (test code = GLYHGB) 8.7 % HbA1 4. 8-6.0 H ESTIMATED AVERAGE GLUCOSE (test code = EAG) 203 MG/DL BASIC METABOLIC [id number] 06:50:00* Test Item Value Reference Range Interpretation Comments SODIUM (test code = NA) 133 mmol/L 136-145 L POTASSIUM (test code = K) 3.8 mmol/L 3.5-5.1 N CHLORIDE (test code = CL) 97.0 mmol/L 98-107 L CARBON DIOXIDE (test code = CO2) mmol/L 21-32 ANION GAP (test code = GAP) 10-20 GLUCOSE (test code = GLU) mg/dL 74-106 BLOOD UREA NITROGEN (test code = BUN) mg/dL 7-18 GLOMERULAR FILTRATION RATE (test code = GFR) mL/min >=60 CREATININE (test code = CREAT) mg/dL 0.55-1.02 BUN/CREATININE RATIO (test code = BUN/CREA) 10-20 CALCIUM (test code = CA) mg/dL 8.5-10.1 TSH REFLEX TO [id number] 06:50:00* Test Item Value Reference Range Interpretation Comments TSH REFLEX TO FT4 (test code = TSHREFLEX) 0.4-5.5 CBC W/O [id number] 06:35:00* Test Item Value Reference Range Interpretation Comments WHITE BLOOD CELL (test code = WBC) 18.7 K/mm3 4.5-12.5 H RED BLOOD CELL (test code = RBC) 4.60 mill/mm3 3.7-5.2 N HEMOGLOBIN (test code = HGB) 15.4 gram/dL 11.5-15.5 N HEMATOCRIT (test code = HCT) 44.3 % 36.0-46.0 N MEAN CELL VOLUME (test code = MCV) 96.3 fL 80-98 N MEAN CELL HGB (test code = MCH) 33.5 picogram 27.0-33.0 H MEAN CELL HGB CONCETRATION (test code = MCHC) 34.8 gram/dL 33.0-36. 0 N RED CELL DISTRIBUTION WIDTH (test code = RDW) 11.9 % 11.6-16. 2 N PLATELET COUNT (test code = PLT) 394 K/mm3 150-450 N MEAN PLATELET VOLUME (test code = MPV) 9.8 fL 6.7-11.0 N CBC W/O [id number] 06:23:00* Test Item Value Reference Range Interpretation Comments WHITE BLOOD CELL (test code = WBC) K/mm3 4.5-12.5 RED BLOOD CELL (test code = RBC) mill/mm3 3.7-5.2 HEMOGLOBIN (test code = HGB) 15.4 gram/dL 11.5-15.5 N HEMATOCRIT (test code = HCT) 44.3 % 36.0-46.0 N MEAN CELL VOLUME (test code = MCV) fL 80-98 MEAN CELL HGB (test code = MCH) picogram 27.0-33.0 MEAN CELL HGB CONCETRATION (test code = MCHC) gram/dL 33.0-36. 0 RED CELL DISTRIBUTION WIDTH (test code = RDW) % 11.6-16. 2 PLATELET COUNT (test code = PLT) K/mm3 150-450 MEAN PLATELET VOLUME (test code = MPV) fL 6.7-11.0 [id number] 22:41:00* Test Item Value Reference Range Interpretation Comments GLUBED (test code = GLUBED) 356 mg/dL 74-106 H Performed by certified dry house operator at [facility] CREATINE KINASE (CK)2019-02-04 18:48:00* Test Item Value Reference Range Interpretation Comments CREATINE KINASE (CK) (test code = CK) 114 IUnit/L 26-208 N [id number] 18:48:00* Test Item Value Reference Range Interpretation Comments TROPONIN-I (test code = TROPI) <0.015 ng/mL 0-0.045 N [id number] 18:48:00* Test Item Value Reference Range Interpretation Comments ACETAMINOPHEN (test code = ACET) < 10 mcg/mL 10-30 L A RANGE OF 10-30 mcg/mL IS A THERAPEUTIC RANGE. TOXIC CONCENTRATIONS: >150 mcg/mL AT 4 HOURS AFTER INGESTION >= 50 mcg/mL AT 12 HOURS AFTER INGESTION [id number] 18:48:00* Test Item Value Reference Range Interpretation Comments SALICYLATE (test code = ARMAND) 5.0 mg/dL 2.8-20.0 N [id number] 18:48:00* Test Item Value Reference Range Interpretation Comments ALCOHOL (test code = ALC) 6 mg/dL 0.0-3.0 H -- INTERPRETIVE DATA NOTE: POSITIVE SCREENING RESULTS SHOULD BE CONSIDERED PRESUMPTIVE.WHEN COLLECTED FOR MEDICAL PURPOSES ONLY. SPECIMEN WILL NOTBE COLLECTED BY CHAIN OF CUSTODY.IF A CONFIRMATION OF POSITIVE RESULTS IS DESIRED, ACONFIRMATION TEST MUST BE REQUESTED BY THE PHYSICIAN AT ANADDITIONAL CHARGE TO THE PATIENT. [id number] 18:48:00* Test Item Value Reference Range Interpretation Comments AMMONIA (test code = AMM) 38 umol/L 11-32 H - XR CHEST 1 [id number] 18:27:00 FAX: Kacie Kathleen MD [phone] [place]: St: [facility] FAX: Zora An MD [phone] Name: AILYN ULRICH [facility] : 1960 Age/S: 58/F [address] Unit #: [id number] Loc: [place] [address] Phys: Zora An MD Acct: [id number] Dis Date: Status: ADM IN PHONE #: [phone] Exam Date: 02/04/2019 1825 FAX #: [phone] Reason: Altered Mental Status EXAMS: CPT CODE: [id number] XR CHEST 1 V 04961 REASON FOR EXAM: Altered Mental Status EXAM ORDER DATE: 02/04/2019 5:40 PM Ordering MBryant: Zora An MD PROCEDURE: - XR CHEST 1 V COMPARISON: FINDINGS: Portable AP frontal view of the chest obtained at 6:20 PM shows clear lungs without evidence of consolidation. There is no evidence of effusion. The heart size is within normal limits. Pulmonary vasculatures are unremarkable. IMPRESSION: No active disease. E lectronically Signed by Martha Rucker on 02/04/2019 at 1827 Reported and signed by: Kelvin Rucker M.D. CC: Kacie Clay MD; Zora An MD Technologist: CHEYANNE SEYMOUR, RT(R) Trnscrd Date/Time/By: 02/04/2019 (1827) : By: Santana ROWAN Orig Print D/T: S: 02/04/2019 (1830) LAILA ZHANG 1 Signed Report - CT HEAD/BRAIN W/O [id number] 18:00:00 Name: AILYN ULRICH [facility] : 1960 Age/S: 58 / F [address] [facility] Unit #: [id number] Loc: [place] [address] [address] Phys: Zora An MD Acct: [id number] Dis Date: Status: ADM IN PHONE #: [phone] Exam Date: 02/04/2019 1800 FAX #: [phone] Reason: Altered Mental Status EXAMS: CPT CODE: [id number] CT HEAD/BRAIN W/O CONT 17201 REASON FOR EXAM: Altered Mental Status EXAM ORDER DATE: 02/04/2019 5:40 PM Ordering Schuyler.: Zora An MD PROCEDURE: - CT HEAD/BRAIN W/O CONT COMPARISON: FINDINGS: CT images of the brain were obtained without IV contrast. Dose modulation, iterative reconstruction, and/or weight based adjustment of the MA/KV was utilized to reduce the radiation dose to as low as reasonably achievable. The brain parenchyma is within normal limits. The barbour-white matter delineation is unremarkable. The ventricles, cisterns, and sulci are unremarkable. There is no evidence of hemorrhage, mass, mass effect. There is no evidence of acute or old infarct. The calvarium is intact. IMPRESSION: Unremarkable brain. at 1800 Reported and signed by: Kelvin Rucker M.D. CC: Kacie Clay MD; Zora An MD Technologist:TESHA MARK, RT(R) CT CTDI: DLP: Trnscb Date/Time: 02/04/2019 (1800) [email or web address] Orig Print D/T: S: 02/04/2019 (8605) PAGE 1 Signed Report COMPREHENSIVE METABOLIC [id number] 16:49:00* Test Item Value Reference Range Interpretation Comments SODIUM (test code = NA) 132 mmol/L 136-145 L POTASSIUM (test code = K) 4.0 mmol/L 3.5-5.1 N CHLORIDE (test code = CL) 95.0 mmol/L 98-107 L CARBON DIOXIDE (test code = CO2) 25.0 mmol/L 21-32 N ANION GAP (test code = GAP) 16.0 10-20 N GLUCOSE (test code = GLU) 297 mg/dL 74-106 H BLOOD UREA NITROGEN (test code = BUN) 11 mg/dL 7-18 N GLOMERULAR FILTRATION RATE (test code = GFR) > 60 mL/min >=60 Estimated GFR by using Modified MDRD formula.Chronic kidney disease is defined as either kidney damageor GFR <60 mL/min/1.73 m2 for >3 months. CREATININE (test code = CREAT) 0.80 mg/dL 0.55-1.02 N Note change in reference range due to change in reagent. BUN/CREATININE RATIO (test code = BUN/CREA) 13.3 10-20 N TOTAL PROTEIN (test code = PROT) 9.6 gram/dL 6.4-8.2 H ALBUMIN (test code = ALB) 4.6 g/dL 3.4-5.0 N GLOBULIN (test code = GLOB) 5.0 gram/dL 2.7-4.2 H ALBUMIN/GLOBULIN RATIO (test code = A/G) 0.9 0.75-1.50 N CALCIUM (test code = CA) 10.9 mg/dL 8.5-10.1 H BILIRUBIN TOTAL (test code = BILT) 0.50 mg/dL 0.0-1.0 N SGOT/AST (test code = AST) 10 IUnit/L 15-37 L SGPT/ALT (test code = ALT) 24 IUnit/L 12-78 N ALKALINE PHOSPHATASE TOTAL (test code = ALKP) 97 IUnit/L 45-117 N Note change in reference range due to change in reagent. COMPREHENSIVE METABOLIC [id number] 16:42:00* Test Item Value Reference Range Interpretation Comments SODIUM (test code = NA) 132 mmol/L 136-145 L POTASSIUM (test code = K) 4.0 mmol/L 3.5-5.1 N CHLORIDE (test code = CL) 95.0 mmol/L 98-107 L CARBON DIOXIDE (test code = CO2) mmol/L 21-32 ANION GAP (test code = GAP) 10-20 GLUCOSE (test code = GLU) mg/dL 74-106 BLOOD UREA NITROGEN (test code = BUN) mg/dL 7-18 GLOMERULAR FILTRATION RATE (test code = GFR) mL/min >=60 CREATININE (test code = CREAT) mg/dL 0.55-1.02 BUN/CREATININE RATIO (test code = BUN/CREA) 10-20 TOTAL PROTEIN (test code = PROT) gram/dL 6.4-8.2 ALBUMIN (test code = ALB) g/dL 3.4-5.0 GLOBULIN (test code = GLOB) gram/dL 2.7-4.2 ALBUMIN/GLOBULIN RATIO (test code = A/G) 0.75-1.50 CALCIUM (test code = CA) mg/dL 8.5-10.1 BILIRUBIN TOTAL (test code = BILT) mg/dL 0.0-1.0 SGOT/AST (test code = AST) IUnit/L 15-37 SGPT/ALT (test code = ALT) IUnit/L 12-78 ALKALINE PHOSPHATASE TOTAL (test code = ALKP) IUnit/L 45-117 CBC W/AUTO [id number] 16:29:00* Test Item Value Reference Range Interpretation Comments WHITE BLOOD CELL (test code = WBC) 15.6 K/mm3 4.5-12.5 H RED BLOOD CELL (test code = RBC) 5.12 mill/mm3 3.7-5.2 N HEMOGLOBIN (test code = HGB) 17.3 gram/dL 11.5-15.5 H HEMATOCRIT (test code = HCT) 48.9 % 36.0-46.0 H MEAN CELL VOLUME (test code = MCV) 95.5 fL 80-98 N MEAN CELL HGB (test code = MCH) 33.8 picogram 27.0-33.0 H MEAN CELL HGB CONCETRATION (test code = MCHC) 35.4 gram/dL 33.0-36. 0 N RED CELL DISTRIBUTION WIDTH (test code = RDW) 11.6 % 11.6-16. 2 N RED CELL DISTRIBUTION WIDTH SD (test code = RDW-SD) 40.4 fL 37 .0-51.0 N PLATELET COUNT (test code = PLT) 442 K/mm3 150-450 N MEAN PLATELET VOLUME (test code = MPV) 9.9 fL 6.7-11.0 N NEUTROPHIL % (test code = NT%) 87.6 % 39.0-69.0 H IMMATURE GRANULOCYTE % (test code = IG%) 0.4 % 0.0-5.0 N LYMPHOCYTE % (test code = LY%) 9.3 % 25.0-55.0 L MONOCYTE % (test code = MO%) 2.4 % 0.0-10.0 N EOSINOPHIL % (test code = EO%) 0.0 % 0.0-5.0 N BASOPHIL % (test code = BA%) 0.3 % 0.0-1.0 N NUCLEATED RBC % (test code = NRBC%) 0.0 % 0-0 N NEUTROPHIL # (test code = NT#) 13.69 K/mm3 1.8-7.7 H IMMATURE GRANULOCYTE # (test code = IG#) 0.07 x10 3/uL 0-0.03 H LYMPHOCYTE # (test code = LY#) 1.45 K/mm3 1.0-5.0 N MONOCYTE # (test code = MO#) 0.37 K/mm3 0-0.8 N EOSINOPHIL # (test code = EO#) 0.00 K/mm3 0.0-0.5 N BASOPHIL # (test code = BA#) 0.05 K/mm3 0.0-0.2 N NUCLEATED RBC # (test code = NRBC#) 0.00 K/mm3 0.0-0.1 N MANUAL DIFF REQUIRED (test code = MDIFF) NO ABDOMEN ACUTE SERIES Dwayne/LAILA [id number] 23:37:00 [place] [address] Patient Name: AILYN ULRICH MR #: [id number] : 1960 Age/Sex: 58/F Req #: [id number] Adm Physician: Ordered by: JC BEST MD Report #: [id number] Location: ER Room/Bed: Procedure: 0714-002 3 DX/ABDOMEN ACUTE SERIES W/PA CXR Exam Date: 01/02/19 Exam Time: 2154 REPORT STATUS: S igned EXAM: Chest and abdominal radiographs 2 views INDICATION: Nause a, vomiting COMPARISON: Abdominal CT 11/07/2018. FINDINGS: Lungs are well expanded and clear. No consolidations. Normal heart size. Aortic arch calcifications. The thoracic bones and soft tissues are unremarkable. No pleu ral effusion or pneumothorax. A 3.1 cm calculus in the right mid abdomen co rresponds to the right renal calculus identified on abdominal CT 11/07/2018. No dilated loops of small bowel. No abnormal soft tissue masses. No nobstructive bowel gas pattern. No pneumoperitoneum. There are degener ative changes in the lumbar spine and pelvis. IMPRESSION: 1. No acute thoracic abnormality. 2. A 3.1 cm right renal calculus also seen on abdominal CT 11/07/2018. 3. Nonobstructive bowel gas pattern. Signed by: Jhonny Sutton DO on 01/02/2019 11:40 PM Dictated By: JHONNY SUTTON DO Elect ronically Signed By: JHONNY SUTTON DO on 01/02/19 234 Transcribed By: GAUTAM MENDOZA on 01/02/192339 COPY TO: JC BEST MD Urine WBC 2019-01-02 23:13:00* Test Item Value Reference Range Interpretation Comments Urine WBC (test code = 5821-4) >50 0-5 H [facility] [id number] 23:13:00* Test Item Value Reference Range Interpretation Comments Urine RBC (test code = 19371-1) 11-20 0-5 H [facility] [id number] 23:13:00* Test Item Value Reference Range Interpretation Comments Urine Bacteria (test code = 93729-7) MANY NONE H [facility] Epithelial [id number] 23:13:00 * Test Item Value Reference Range Interpretation Comments Urine Epithelial Cells (test code = 08390-2) FEW NONE [facility] [id number] 22:56:00* Test Item Value Reference Range Interpretation Comments Urine Color (test code = 5778-6) YELLOW YELLOW [facility] [id number] 22:56:00* Test Item Value Reference Range Interpretation Comments Urine Clarity (test code = 12477-0) CLOUDY CLEAR H [facility] Specific [id number] 22:56:00 * Test Item Value Reference Range Interpretation Comments Urine Specific Critz (test code = 5811-5) 1.025 1.010-1.02 5 [facility] [id number] 22:56:00* Test Item Value Reference Range Interpretation Comments Urine pH (test code = 64017-8) 6 5-7 [facility] Leukocyte [id number] 22:56:00* Test Item Value Reference Range Interpretation Comments Urine Leukocyte Esterase (test code = 24978-4) NEGATIVE NEGATIV E [facility] [id number] 22:56:00* Test Item Value Reference Range Interpretation Comments Urine Nitrite (test code = 54762-7) POSITIVE NEGATIVE H [facility] [id number] 22:56:00* Test Item Value Reference Range Interpretation Comments Urine Protein (test code = 03011-8) 3+ NEGATIVE H [facility] Glucose (UA)2019-01-02 22:56:00* Test Item Value Reference Range Interpretation Comments Urine Glucose (UA) (test code = 27097-5) 3+ NEGATIVE [facility] [id number] 22:56:00* Test Item Value Reference Range Interpretation Comments Urine Ketones (test code = 07772-5) 3+ NEGATIVE H [facility]ville[facility] [id number] 22:56:00* Test Item Value Reference Range Interpretation Comments Urine Urobilinogen (test code = 10960-9) 0.2 0.2-1 [facility]ville[facility] [id number] 22:56:00* Test Item Value Reference Range Interpretation Comments Urine Bilirubin (test code = 1977-8) NEGATIVE NEGATIVE [facility] [id number] 22:56:00* Test Item Value Reference Range Interpretation Comments Urine Blood (test code = 90825-1) 1+ NEGATIVE [facility]villeWhite Blood [id number] 22:43:00* Test Item Value Reference Range Interpretation Comments White Blood Count (test code = 6690-2) 14.68 4.8-10.8 H [facility]villeRed Blood [id number] 22:43:00* Test Item Value Reference Range Interpretation Comments Red Blood Count (test code = 789-8) 4.61 3.6-5.1 [facility]villeHemoglobin2019-07-14 22:43:00* Test Item Value Reference Range Interpretation Comments Hemoglobin (test code = 69284-4) 15.7 12.0-16.0 [facility]villeHematocrit2019-07-14 22:43:00* Test Item Value Reference Range Interpretation Comments Hematocrit (test code = 4544-3) 44.5 34.2-44.1 H [facility]villeMean Corpuscular [id number] 22:43:00* Test Item Value Reference Range Interpretation Comments Mean Corpuscular Volume (test code = 787-2) 96.5 81-99 [facility]villeMean Corpuscular [id number] 22:43:00* Test Item Value Reference Range Interpretation Comments Mean Corpuscular Hemoglobin (test code = 785-6) 34.1 28-32 H [facility]villeMean Corpuscular Hemoglobin Concent 2019-01-02 22:43:00* Test Item Value Reference Range Interpretation Comments Mean Corpuscular Hemoglobin Concent (test code = 786-4) 35.3 31-35 H [facility]villeRed Cell Distribution [id number] 22:43:00* Test Item Value Reference Range Interpretation Comments Red Cell Distribution Width (test code = 50158-4) 11.7 11.7 -14.4 [facility]villePlatelet [id number] 22:43:00* Test Item Value Reference Range Interpretation Comments Platelet Count (test code = 777-3) 307 140-360 [facility]villeNeutrophils (%) (Auto)2019-01-02 22:43:00 * Test Item Value Reference Range Interpretation Comments Neutrophils (%) (Auto) (test code = 71823-1) 79.3 38.7-80.0 [facility]villeLymphocytes (%) (Auto)2019-01-02 22:43:00 * Test Item Value Reference Range Interpretation Comments Lymphocytes (%) (Auto) (test code = 736-9) 14.1 18.0-39.1 L [facility]villeMonocytes (%) (Auto)2019-01-02 22:43:00* Test Item Value Reference Range Interpretation Comments Monocytes (%) (Auto) (test code = 5905-5) 5.9 4.4-11.3 [facility]villeEosinophils (%) (Auto)2019-01-02 22:43:00 * Test Item Value Reference Range Interpretation Comments Eosinophils (%) (Auto) (test code = 713-8) 0.1 0.0-6.0 [facility]ville[facility]ophils (%) (Auto)2019-01-02 22:43:00* Test Item Value Reference Range Interpretation Comments Basophils (%) (Auto) (test code = 706-2) 0.3 0.0-1.0 [facility]villeIM GRANULOCYTES %2019-01-02 22:43:00* Test Item Value Reference Range Interpretation Comments IM GRANULOCYTES % (test code = IM GRANULOCYTES %) 0.3 0.0- 1.0 [facility]villeNeutrophils # (Auto)2019-01-02 22:43:00* Test Item Value Reference Range Interpretation Comments Neutrophils # (Auto) (test code = 751-8) 11.6 2.1-6.9 H [facility]villeLymphocytes # (Auto)2019-01-02 22:43:00* Test Item Value Reference Range Interpretation Comments Lymphocytes # (Auto) (test code = 97565-7) 2.1 1.0-3.2 [facility]villeMonocytes # (Auto)2019-01-02 22:43:00* Test Item Value Reference Range Interpretation Comments Monocytes # (Auto) (test code = 742-7) 0.9 0.2-0.8 H [facility]villeEosinophils # (Auto)2019-01-02 22:43:00* Test Item Value Reference Range Interpretation Comments Eosinophils # (Auto) (test code = 711-2) 0.0 0.0-0.4 [facility]villeBasophils # (Auto)2019-01-02 22:43:00* Test Item Value Reference Range Interpretation Comments Basophils # (Auto) (test code = 704-7) 0.0 0.0-0.1 [facility]villeAbsolute Immature Granulocyte (auto 2019-01-02 22:43:00* Test Item Value Reference Range Interpretation Comments Absolute Immature Granulocyte (auto (amilcar t code = Absolute Immature Granulocyte (auto) 0.05 0-0.1 [facility] BrownsvilleAmylase [id number] 22:40:00* Test Item Value Reference Range Interpretation Comments Amylase Level (test code = 1798-8) 27 25-125 [facility]villeLipase2019-07-14 22:40:00* Test Item Value Reference Range Interpretation Comments Lipase (test code = 3040-3) 8 8-78 [facility] Xhpuf7044-21-21 22:39:00* Test Item Value Reference Range Interpretation Comments Sodium Level (test code = 2951-2) 134 136-145 L [facility]villePotassium Rjphg2909-65-38 22:39:00* Test Item Value Reference Range Interpretation Comments Potassium Level (test code = 2823-3) 3.7 3.5-5.1 [facility]villeChloride Jmaox1437-08-54 22:39:00* Test Item Value Reference Range Interpretation Comments Chloride Level (test code = 2075-0) 93 98-107 L [facility]villeCarbon Dioxide Rnufv2421-24-80 22:39:00* Test Item Value Reference Range Interpretation Comments Carbon Dioxide Level (test code = 2028-9) 23 22-29 [facility]villeAnion Gke9631-78-22 22:39:00* Test Item Value Reference Range Interpretation Comments Anion Gap (test code = 25160-8) 21.7 8-16 H [facility]villeBlood Urea Fphwzgwd7847-93-17 22:39:00* Test Item Value Reference Range Interpretation Comments Blood Urea Nitrogen (test code = 3094-0) 12 7-26 [facility]villeCreatinine2019-07-14 22:39:00* Test Item Value Reference Range Interpretation Comments Creatinine (test code = 2160-0) 0.84 0.57-1.11 [facility]villeBUN/Creatinine Fhybf5285-86-09 22:39:00* Test Item Value Reference Range Interpretation Comments BUN/Creatinine Ratio (test code = 3097-3) 14 6- [facility]villeEstimat Glomerular Filtration Rate 2019-01-02 22:39:00* Test Item Value Reference Range Interpretation Comments Estimat Glomerular Filtration Rate (test code = 771612438) > 60 >60 Ranges were taken from the National Kidney Disease Education Program and the [facility] Foundation literature.Reference ranges:60 or greater: Bhcddq59-04 ( for 3 consecutive months): Chronic kidney disease 15 or less: Kidney failureVal[facility] – BrownsvilleGlucose Ipznu4298-21-83 22:39:00* Test Item Value Reference Range Interpretation Comments Glucose Level (test code = TQE1233) 283 74-118 H [facility]villeCalcium Flwjt4362-21-02 22:39:00* Test Item Value Reference Range Interpretation Comments Calcium Level (test code = 00252-6) 9.5 8.4-10.2 [facility]villeTotal Rbkjkctsh9178-54-98 22:39:00* Test Item Value Reference Range Interpretation Comments Total Bilirubin (test code = 1975-2) 0.7 0.2-1.2 [facility]villeAspartate Amino Transf (AST/SGOT) 2019-01-02 22:39:00* Test Item Value Reference Range Interpretation Comments Aspartate Amino Transf (AST/SGOT) (test code = Aspartate Amino Transf (AST/SGOT)) 15 5-34 [facility]villeAlanine Aminotransferase (ALT/SGPT) 2019-01-02 22:39:00* Test Item Value Reference Range Interpretation Comments Alanine Aminotransferase (ALT/SGPT) (test code = 1742-6) 17 0-55 [facility]villeTotal Jbvalbn4504-03-40 22:39:00* Test Item Value Reference Range Interpretation Comments Total Protein (test code = 2885-2) 7.8 6.5-8.1 [facility]villeAlbumin2019-07-14 22:39:00* Test Item Value Reference Range Interpretation Comments Albumin (test code = 1751-7) 4.2 3.5-5.0 [facility]villeGlobulin2019-07-14 22:39:00* Test Item Value Reference Range Interpretation Comments Globulin (test code = 40168-3) 3.6 2.3-3.5 H [facility]villeAlbumin/Globulin Fudnu5897-65-98 22:39:00 * Test Item Value Reference Range Interpretation Comments Albumin/Globulin Ratio (test code = 1759-0) 1.2 0.8-2.0 [facility]villeAlkaline Tclxtfqpzid4140-16-98 22:39:00* Test Item Value Reference Range Interpretation Comments Alkaline Phosphatase (test code = 6768-6) 74 40-150 [facility]villeCreatine Alqbqd2526-03-20 22:39:00* Test Item Value Reference Range Interpretation Comments Creatine Kinase (test code = 2157-6) 99 29-168 [facility]villeCreatine Kinase KH2052-10-17 22:39:00* Test Item Value Reference Range Interpretation Comments Creatine Kinase MB (test code = 84770-9) 2.60 0-5.0 [facility]villeTroponin A0664-10-73 22:39:00* Test Item Value Reference Range Interpretation Comments Troponin I (test code = DAT7771) 0.010 0-0.300 [facility]villeBlood Bzmhsxe7184-88-14 20:15:00* Test Item Value Reference Range Interpretation Comments Blood Culture (test code = 38780509) NO GROWTH AFTER 5 DAYS, FINAL REPORT [facility] Dwqydwg8648-97-13 15:17:00* Test Item Value Reference Range Interpretation Comments Bedside Glucose (test code = 96239-7) 127 70-120 H Meter ID: [id number] [facility] Glucose 2018-11-10 11:12:00* Test Item Value Reference Range Interpretation Comments Bedside Glucose (test code = 09467-1) 150 70-120 H Meter ID: [id number] [facility] StationUrine Culture 2018-11-10 08:11:00* Test Item Value Reference Range Interpretation Comments Urine Culture (test code = 630-4) Organism: ENTEROBACTER AEROGENES [facility]villeUrine Ruloeij0575-53-51 08:11:00* Test Item Value Reference Range Interpretation Comments Urine Culture (test code = 630-4) Organism: ENTEROBACTER AEROGENES [facility] BrownsvilleB-Type Natriuretic Vggrucd2375-60-47 07:06:00* Test Item Value Reference Range Interpretation Comments B-Type Natriuretic Peptide (test code = 78079-8) 25.6 0-100 [facility]villeB-Type Natriuretic Lbmxkrm9752-54-54 07:06:00* Test Item Value Reference Range Interpretation Comments B-Type Natriuretic Peptide (test code = 53327-9) 25.6 0-100 [facility] Centerodium Vtnuy1551-39-37 06:44:00* Test Item Value Reference Range Interpretation Comments Sodium Level (test code = 2951-2) 133 136-145 L [facility]villePotassium Vxyfz5987-40-45 06:44:00* Test Item Value Reference Range Interpretation Comments Potassium Level (test code = 2823-3) 3.6 3.5-5.1 [facility]villeChloride Iyzyx1073-82-96 06:44:00* Test Item Value Reference Range Interpretation Comments Chloride Level (test code = 2075-0) 94 98-107 L [facility]villeCarbon Dioxide Qtpkd6894-21-48 06:44:00* Test Item Value Reference Range Interpretation Comments Carbon Dioxide Level (test code = 2028-9) 33 22-29 H [facility]villeAnion Lrw4846-05-51 06:44:00* Test Item Value Reference Range Interpretation Comments Anion Gap (test code = 86219-9) 9.6 8-16 [facility]villeBlood Urea Ajxosuwo9617-76-56 06:44:00* Test Item Value Reference Range Interpretation Comments Blood Urea Nitrogen (test code = 3094-0) 10 7-26 [facility]villeCreatinine2019-05-22 06:44:00* Test Item Value Reference Range Interpretation Comments Creatinine (test code = 2160-0) 0.75 0.57-1.11 [facility]villeBUN/Creatinine Iqsqq4991-85-53 06:44:00* Test Item Value Reference Range Interpretation Comments BUN/Creatinine Ratio (test code = 3097-3) 13 6-25 [facility] BrownsvilleEstimat Glomerular Filtration Rate 2018-11-10 06:44:00* Test Item Value Reference Range Interpretation Comments Estimat Glomerular Filtration Rate (test code = 586114511) > 60 >60 Ranges were taken from the National Kidney Disease Education Program and the [facility] Kidney Foundation literature.Reference ranges:60 or greater: Dnzknj30-68 ( for 3 consecutive months): Chronic kidney disease 15 or less: Kidney failureVal[facility] – BrownsvilleGlucose Nfxys8593-13-43 06:44:00* Test Item Value Reference Range Interpretation Comments Glucose Level (test code = HJN6103) 230 74-118 H [facility]villeCalcium Ovugx3987-06-36 06:44:00* Test Item Value Reference Range Interpretation Comments Calcium Level (test code = 56075-2) 8.8 8.4-10.2 [facility]villeMagnesium Fmudp5617-34-46 06:44:00* Test Item Value Reference Range Interpretation Comments Magnesium Level (test code = 24538-5) 1.7 1.3-2.1 [facility]villeMagnesium Xisui7429-22-12 06:44:00* Test Item Value Reference Range Interpretation Comments Magnesium Level (test code = 76127-1) 1.7 1.3-2.1 [facility]villeWhite Blood Jmjse2368-17-27 06:15:00* Test Item Value Reference Range Interpretation Comments White Blood Count (test code = 6690-2) 11.43 4.8-10.8 H [facility]villeRed Blood Gkjqk7416-73-50 06:15:00* Test Item Value Reference Range Interpretation Comments Red Blood Count (test code = 789-8) 3.81 3.6-5.1 [facility]villeHemoglobin2019-05-22 06:15:00* Test Item Value Reference Range Interpretation Comments Hemoglobin (test code = 99065-3) 12.6 12.0-16.0 [facility]villeHematocrit2019-05-22 06:15:00* Test Item Value Reference Range Interpretation Comments Hematocrit (test code = 4544-3) 36.9 34.2-44.1 [facility]villeMean Corpuscular Gxaczt3386-85-82 06:15:00* Test Item Value Reference Range Interpretation Comments Mean Corpuscular Volume (test code = 787-2) 96.9 81-99 [facility]villeMean Corpuscular Svskrauhzx9363-85-42 06:15:00* Test Item Value Reference Range Interpretation Comments Mean Corpuscular Hemoglobin (test code = 785-6) 33.1 28-32 H [facility]villeMean Corpuscular Hemoglobin Concent 2018-11-10 06:15:00* Test Item Value Reference Range Interpretation Comments Mean Corpuscular Hemoglobin Concent (test code = 786-4) 34.1 31-35 [facility]villeRed Cell Distribution Wajru5023-10-95 06:15:00* Test Item Value Reference Range Interpretation Comments Red Cell Distribution Width (test code = 10837-3) 11.6 11.7 -14.4 L [facility]villePlatelet Bazlq1074-36-03 06:15:00* Test Item Value Reference Range Interpretation Comments Platelet Count (test code = 777-3) 291 140-360 [facility]villeNeutrophils (%) (Auto)2018-11-10 06:15:00 * Test Item Value Reference Range Interpretation Comments Neutrophils (%) (Auto) (test code = 78853-0) 63.5 38.7-80.0 [facility]villeLymphocytes (%) (Auto)2018-11-10 06:15:00 * Test Item Value Reference Range Interpretation Comments Lymphocytes (%) (Auto) (test code = 736-9) 25.4 18.0-39.1 [facility]villeMonocytes (%) (Auto)2018-11-10 06:15:00* Test Item Value Reference Range Interpretation Comments Monocytes (%) (Auto) (test code = 5905-5) 9.4 4.4-11.3 [facility]villeEosinophils (%) (Auto)2018-11-10 06:15:00 * Test Item Value Reference Range Interpretation Comments Eosinophils (%) (Auto) (test code = 713-8) 1.0 0.0-6.0 [facility]villeBasophils (%) (Auto)2018-11-10 06:15:00* Test Item Value Reference Range Interpretation Comments Basophils (%) (Auto) (test code = 706-2) 0.3 0.0-1.0 [facility] BrownsvilleIM GRANULOCYTES %2018-11-10 06:15:00* Test Item Value Reference Range Interpretation Comments IM GRANULOCYTES % (test code = IM GRANULOCYTES %) 0.4 0.0- 1.0 [facility]villeNeutrophils # (Auto)2018-11-10 06:15:00* Test Item Value Reference Range Interpretation Comments Neutrophils # (Auto) (test code = 751-8) 7.2 2.1-6.9 H [facility]villeLymphocytes # (Auto)2018-11-10 06:15:00* Test Item Value Reference Range Interpretation Comments Lymphocytes # (Auto) (test code = 93340-2) 2.9 1.0-3.2 [facility]villeMonocytes # (Auto)2018-11-10 06:15:00* Test Item Value Reference Range Interpretation Comments Monocytes # (Auto) (test code = 742-7) 1.1 0.2-0.8 H [facility]villeEosinophils # (Auto)2018-11-10 06:15:00* Test Item Value Reference Range Interpretation Comments Eosinophils # (Auto) (test code = 711-2) 0.1 0.0-0.4 [facility]villeBasophils # (Auto)2018-11-10 06:15:00* Test Item Value Reference Range Interpretation Comments Basophils # (Auto) (test code = 704-7) 0.0 0.0-0.1 [facility] BrownsvilleAbsolute Immature Granulocyte (auto 2018-11-10 06:15:00* Test Item Value Reference Range Interpretation Comments Absolute Immature Granulocyte (auto (amilcar t code = Absolute Immature Granulocyte (auto) 0.05 0-0.1 [facility]villeBlood Zkxytbq5383-37-79 20:15:00* Test Item Value Reference Range Interpretation Comments Blood Culture (test code = 87220932) NO GROWTH AFTER 48 HOURS [facility] BrownsvilleLipase2019-05-20 13:25:00* Test Item Value Reference Range Interpretation Comments Lipase (test code = 3040-3) 17 8-78 [facility]villeCreatine Kinase CW8116-40-18 13:09:00* Test Item Value Reference Range Interpretation Comments Creatine Kinase MB (test code = 46952-1) 1.60 0-5.0 [facility]villeTroponin F7928-01-84 13:09:00* Test Item Value Reference Range Interpretation Comments Troponin I (test code = KIR5230) 0.005 0-0.300 [facility]villeCreatine Lbeuqt1619-78-08 13:08:00* Test Item Value Reference Range Interpretation Comments Creatine Kinase (test code = 2157-6) 28 29-168 L [facility]villeInfluenza Virus Types A,B Antigen 2018-11-08 12:00:00* Test Item Value Reference Range Interpretation Comments Influenza Virus Types A,B Antigen (test code = 33921-4) NEGATIVE NEGATIVE [facility]villeGroup A Streptococcus Spgqfl7106-48-73 12:00:00* Test Item Value Reference Range Interpretation Comments Group A Streptococcus Screen (test code = 50288-9) NEGATIVE NEG ATIVE [facility] BrownsvilleInfluenza Virus Types A,B Antigen 2018-11-08 12:00:00* Test Item Value Reference Range Interpretation Comments Influenza Virus Types A,B Antigen (test code = 61642-7) NEGATIVE NEGATIVE [facility] BrownsvilleGroup A Streptococcus Kunxer9228-52-08 12:00:00* Test Item Value Reference Range Interpretation Comments Group A Streptococcus Screen (test code = 16561-8) NEGATIVE NEG ATIVE [facility] BrownsvilleFree Gmiovbmmd2279-89-41 07:43:00* Test Item Value Reference Range Interpretation Comments Free Thyroxine (test code = 3024-7) 0.93 0.9-1.8 [facility] BrownsvilleThyroid Stimulating Hormone (TSH) 2018-11-08 07:43:00* Test Item Value Reference Range Interpretation Comments Thyroid Stimulating Hormone (TSH) (test code = 69556-8) 0.521 0.350-4.940 [facility] BrownsvilleFr Khsilokvs4138-84-81 07:43:00* Test Item Value Reference Range Interpretation Comments Free Thyroxine (test code = 3024-7) 0.93 0.9-1.8 [facility] BrownsvilleThyroid Stimulating Hormone (TSH) 2018-11-08 07:43:00* Test Item Value Reference Range Interpretation Comments Thyroid Stimulating Hormone (TSH) (test code = 22659-3) 0.521 0.350-4.940 [facility] BrownsvilleHemoglobin A1c Zpjrcup7911-58-27 07:32:00 * Test Item Value Reference Range Interpretation Comments Hemoglobin A1c Percent (test code = Hemoglobin A1c Percent) 11.4 4.0-7.0 H [facility]villeHemoglobin A1c Kjnbjfz4694-60-92 07:32:00 * Test Item Value Reference Range Interpretation Comments Hemoglobin A1c Percent (test code = Hemoglobin A1c Percent) 11.4 4.0-7.0 H [facility] BrownsvilleCT ABDOMEN/PELVIS Z8353-08-65 21:46:00 [facility] [address] [address] Patient Name: AILYN ULRICH MR #: [id number] : 1960 Age/Sex: 58/F Req #: [id number] Adm Physician: DILMA IRVING MD Ordered by: JACQUELINE MENJIVAR MD Report #: [id number] Location: ICU Room/Bed: ICU [facility] Procedure: [id number] CT /CT ABDOMEN/PELVIS W Exam Date: 11/07/18 Exam Time: 2044 REPORT STATUS: Signed EXAMI NATION: CT of the abdomen and pelvis with contrast. TECHNIQUE: Spiral CT images of the abdomen and pelvis were performed from the lung bases to the le sser trochanters after the intravenous administration of 100 cc of Isovue 370 and the oral administration of water. Coronal and sagittal reformatted images were obtained. COMPARISON: None. CLINICAL HISTORY:Hyperosmolar syndr ome, nausea and vomiting for 9 days, dizziness, loss of appetite DIS CUSSION: ABDOMEN/PELVIS: LOWER THORAX:Unremarkable. HEPATOBILIARY : No focal hepatic lesions. No intra or extrahepatic biliary ductal dilation. GALLBLADDER: No radio-opaque stones or sludge. No wall thickening. S PLEEN: No splenomegaly. PANCREAS: No focal masses or ductal dilatation. ADRENALS: No adrenal nodules. KIDNEYS/URETERS: No hydronephrosis or solid mass lesions. 1.6 cm fluid density simple cyst in the left superior to mid a spect (series 2, image 23). 1.1 x 1.5 x 2.4 cm irregular shaped hyperdensity i n the inferior pole of the right kidney (series 2, image 36 and sagittal image 42). The right kidney measures 7.7 cm in length. The left kidney measures 10.4 cm in length. PELVIC ORGANS/BLADDER: Bladder is unremarkable. Uterus unre markable. No adnexal masses. PERITONEUM/RETROPERITONEUM: No free air or f luid. LYMPH NODES: No intra-abdominal, retroperitoneal, pelvic or inguinal lymphadenopathy. VESSELS: The celiac trunk,superior and inferior mesenter ic and bilateral renal arteries are patent The portal, superior mesenteric a nd splenic veins are patent. Atherosclerotic calcification of the abdominal ao rta, aortic branches and iliac vessels. GI TRACT: No bowel dilation or ev idence of obstruction. No pericolonic inflammatory changes. Appendix is well i dentified and normal in caliber. BONES AND SOFT TISSUE: No aggressive lytic lesions. Multilevel degenerative disc changes in the lumbosacral spine, with mild lateral subluxation at L4-L5, intervertebral disc space narrowing L3-S1. No soft tissue abnormalities. IMPRESSION: 1. No acute abdominopelv ic abnormalities. No bowel dilation or evidence of obstruction. No wall thicke barbara or surrounding inflammatory changes. 2. Indeterminate irregularly shap ed hyperdensity in the inferior pole of the right kidney, which is smaller in size than the left. This may represent a calcification in area of renal atroph y. Excreted contrast is less likely, as no contrast is noted in bilateral mini ecting systems. Negative given history for prior surgical procedures Sign ed by: Dr. Jareth Colon M.D. on 11/07/2018 9:56 PM Dictated By: RAMON COLON MD 53 Tra nscribed By: SANDHYA on 11/07/182155 COPY TO: JACQUELINE MENJIVAR MD CHEST SINGLE (PORTABLE)2018-11-07 21:07:00 [facility] [address] [place] [address] Patient Name: AILYN ULRICH MR #: [id number] : 1960 Age/Sex: 58/F Req #: [id number] Adm Physician: DILMA IRVING MD Ordered by: JACQUELINE MENJIVAR MD Report #: [id number] Location: [facility] Room/Bed: [address] [address] Procedure: [id number] DX /CHEST SINGLE (PORTABLE) Exam Date: 11/07/18 Exam Ti me: 2049 REPORT STATUS: Signed E xamination: Single AP view of the chest. COMPARISON: None. INDICATION: Hyperosmolar syndrome, dizziness, nausea and vomiting IMPRESSION: 1. Lines and Tubes: None 2. Lungs are grossly clear. No consolidation or effusion. 3. Cardiomediastinal silhouette is normal. Pulmonary vasculature is normal. 4. No acute bony abnormalities. Signed by: Dr. Jareth huston M.D. on 11/07/2018 9:08 PM Dictated By: JARETH COLON MD Electronic ally Signed By: JARETH COLON MD on 11/07/182107 Transcribed By: SANDHYA on 0 11/07/182107 COPY TO: JACQUELINE MENJIVAR MD Venous Blood pH 2018-11-07 21:00:00* Test Item Value Reference Range Interpretation Comments Venous Blood pH (test code = Venous Blood pH) 7.329 7.35-7.3 8 L [facility] StationVenous Blood Partial Pressure CO2 2018-11-07 21:00:00* Test Item Value Reference Range Interpretation Comments Venous Blood Partial Pressure CO2 (test code = Venous Blood Partial Pressure CO2) 41.6 44-48 L [facility] Fallsous Blood Partial Pressure O2 2018-11-07 21:00:00* Test Item Value Reference Range Interpretation Comments Venous Blood Partial Pressure O2 (test code = Venous B lood Partial Pressure O2) 35 40-41 L [facility] Blood [id number] 21:00:00* Test Item Value Reference Range Interpretation Comments Venous Blood HCO3 (test code = Venous Blood HCO3) 21.9 21-2 2 [facility] Blood Total Carbon Dioxide 2018-11-07 21:00:00* Test Item Value Reference Range Interpretation Comments Venous Blood Total Carbon Dioxide (test code = Venous Blood Total Carbon Dioxide) 23 [facility] Blood Base Szdqir7308-01-88 21:00:00* Test Item Value Reference Range Interpretation Comments Venous Blood Base Excess (test code = Venous Blood Base Excess) -4 [facility] Blood Oxygen Sdgxabjpgq5686-13-09 21:00:00* Test Item Value Reference Range Interpretation Comments Venous Blood Oxygen Saturation (test code = Venous Blood Oxy gen Saturation) 64 [facility]villeFiO22019-05-19 21:00:00* Test Item Value Reference Range Interpretation Comments FiO2 (test code = FiO2) 21 [facility] Blood [id number] 21:00:00* Test Item Value Reference Range Interpretation Comments Venous Blood pH (test code = Venous Blood pH) 7.329 7.35-7.3 8 L [facility] Fallsous Blood Partial Pressure CO2 2018-11-07 21:00:00* Test Item Value Reference Range Interpretation Comments Venous Blood Partial Pressure CO2 (test code = Venous Blood Partial Pressure CO2) 41.6 44-48 L [facility] Blood Partial Pressure O2 2018-11-07 21:00:00* Test Item Value Reference Range Interpretation Comments Venous Blood Partial Pressure O2 (test code = Venous B lood Partial Pressure O2) 35 40-41 L [facility] Blood [id number] 21:00:00* Test Item Value Reference Range Interpretation Comments Venous Blood HCO3 (test code = Venous Blood HCO3) 21.9 21-2 2 [facility]villeVenous Blood Total Carbon Dioxide 2018-11-07 21:00:00* Test Item Value Reference Range Interpretation Comments Venous Blood Total Carbon Dioxide (test code = Venous Blood Total Carbon Dioxide) 23 [facility]villeVenous Blood Base Dcytmn6129-07-93 21:00:00* Test Item Value Reference Range Interpretation Comments Venous Blood Base Excess (test code = Venous Blood Base Excess) -4 [facility]villeVenous Blood Oxygen Jbgajaaqvx3588-44-99 21:00:00* Test Item Value Reference Range Interpretation Comments Venous Blood Oxygen Saturation (test code = Venous Blood Oxy gen Saturation) 64 [facility] BrownsvilleFiO22019-05-19 21:00:00* Test Item Value Reference Range Interpretation Comments FiO2 (test code = FiO2) 21 [facility] BrownsvilleUrine EKL1804-37-81 20:41:00* Test Item Value Reference Range Interpretation Comments Urine WBC (test code = 5821-4) 21-50 0-5 H [facility]villeUrine EIO1142-45-71 20:41:00* Test Item Value Reference Range Interpretation Comments Urine RBC (test code = 02422-0) 0-5 0-5 [facility]villeUrine Vpginfwg6918-39-10 20:41:00* Test Item Value Reference Range Interpretation Comments Urine Bacteria (test code = 96887-0) FEW NONE [facility] Ep[facility]helial [id number] 20:41:00 * Test Item Value Reference Range Interpretation Comments Urine Epithelial Cells (test code = 56579-4) MODERATE NONE [facility] [id number] 19:54:00* Test Item Value Reference Range Interpretation Comments Urine Color (test code = 5778-6) YELLOW YELLOW [facility] [id number] 19:54:00* Test Item Value Reference Range Interpretation Comments Urine Clarity (test code = 00420-0) CLEAR CLEAR [facility] Specific [id number] 19:54:00 * Test Item Value Reference Range Interpretation Comments Urine Specific Critz (test code = 5811-5) 1.020 1.010-1.02 5 [facility] [id number] 19:54:00* Test Item Value Reference Range Interpretation Comments Urine pH (test code = 62661-3) 6 5-7 [facility] Leukocyte [id number] 19:54:00* Test Item Value Reference Range Interpretation Comments Urine Leukocyte Esterase (test code = 5799-2) NEGATIVE NEGATIVE [facility] [id number] 19:54:00* Test Item Value Reference Range Interpretation Comments Urine Nitrite (test code = 19157-6) POSITIVE NEGATIVE H [facility] [id number] 19:54:00* Test Item Value Reference Range Interpretation Comments Urine Protein (test code = 5804-0) NEGATIVE NEGATIVE [facility] Glucose (UA)2018-11-07 19:54:00* Test Item Value Reference Range Interpretation Comments Urine Glucose (UA) (test code = 2349-9) 3+ NEGATIVE H [facility] [id number] 19:54:00* Test Item Value Reference Range Interpretation Comments Urine Ketones (test code = 36803-6) 2+ NEGATIVE H [facility] [id number] 19:54:00* Test Item Value Reference Range Interpretation Comments Urine Urobilinogen (test code = 81042-9) 0.2 0.2-1 [facility] [id number] 19:54:00* Test Item Value Reference Range Interpretation Comments Urine Bilirubin (test code = 1978-6) NEGATIVE NEGATIVE [facility] [id number] 19:54:00* Test Item Value Reference Range Interpretation Comments Urine Blood (test code = 74669-8) TRACE NEGATIVE H [facility] Aggzuhpbp5279-00-16 17:55:00* Test Item Value Reference Range Interpretation Comments Total Bilirubin (test code = 1974-2) 0.6 0.2-1.2 [facility] Amino Transf (AST/SGOT) 2018-11-07 17:55:00* Test Item Value Reference Range Interpretation Comments Aspartate Amino Transf (AST/SGOT) (test code = Aspartate Amino Transf (AST/SGOT)) 10 5-34 [facility] Aminotransferase (ALT/SGPT) 2018-11-07 17:55:00* Test Item Value Reference Range Interpretation Comments Alanine Aminotransferase (ALT/SGPT) (test code = 1742-6) 20 0-55 [facility] [id number] 17:55:00* Test Item Value Reference Range Interpretation Comments Total Protein (test code = 2885-2) 7.4 6.5-8.1 [facility]in2019-05-19 17:55:00* Test Item Value Reference Range Interpretation Comments Albumin (test code = 1751-7) 3.8 3.5-5.0 [facility]ulin2019-05-19 17:55:00* Test Item Value Reference Range Interpretation Comments Globulin (test code = 54995-6) 3.6 2.3-3.5 H [facility]/Globulin [id number] 17:55:00 * Test Item Value Reference Range Interpretation Comments Albumin/Globulin Ratio (test code = 1759-0) 1.1 0.8-2.0 [facility]ville[facility]kaline [id number] 17:55:00* Test Item Value Reference Range Interpretation Comments Alkaline Phosphatase (test code = 6768-6) 102 40-150 [facility]
[2020-02-13 05:42] LABS: BASOPHILS # (AUTO) 0.1 (0.0-0.1); BASOPHILS % 0.2 % (0.0-1.0); EOSINOPHILS # (AUTO) 10.6 (0.0-0.4); EOSINOPHILS % 43.7 % (0.0-6.0); HEMATOCRIT 50.6 % (34.2-44.1); HEMOGLOBIN 18.1 g/dL (12.0-16.0); LYMPHOCYTES # (AUTO) 1.6 (1.0-3.2); LYMPHOCYTES % 6.4 % (18.0-39.1); MEAN CORPUSCULAR HGB CONC 35.8 g/dL (31-35); MEAN CORPUSCULAR VOLUME 92.3 fL (81-99); MONOCYTES # (AUTO) 1.2 (0.2-0.8); NEUTROPHILS # (AUTO) 10.7 (2.1-6.9); NEUTROPHILS % 44.2 % (38.7-80.0); PLATELET COUNT 316 x10e3/uL (140-360); RED BLOOD COUNT 5.48 x10e6/uL (3.6-5.1); RED CELL DISTRIBUTION WIDTH 11.6 % (11.7-14.4)
--- NOTE | 2020-02-13 05:43 | NUR ---
EKG GIVEN TO MD FOR REVIEW
--- NOTE | 2020-02-13 05:49 | Emergency Department Note ---
History of Present Illnes History of Present Illness Chief Complaint: Abdominal Complaints History of Present Illness This is a 59 year old female arrived to the ED with suprapubic abdominal pain for 4 days associated with vomiting. Patient states she is homeless and has been feeling very ill. 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 Any updates have been documented here. Past Medical History Recent Fever: No Clinical Suspicion of Infectio: No New/Unexplained Change in Ment: No Past Medical History: Hypertension, Diabetes Past Surgical History: None Social History Smoking Cessation: Current some day smoker Alcohol Use: Social Other Last Tetanus: UTD Review of Systems Review of Systems Constitutional: Reports no symptoms EENTM: Reports no symptoms Cardiovascular: Reports no symptoms Respiratory: Reports no symptoms Gastrointestinal: Reports as per HPI, Reports abdominal pain, Reports nausea, R eports vomiting Genitourinary: Reports no symptoms Musculoskeletal: Reports no symptoms Integumentary: Reports no symptoms Neurological: Reports no symptoms Psychological: Reports no symptoms Endocrine: Reports no symptoms Hematological/Lymphatic: Reports no symptoms Physical Exam Related Data Allergies: Coded Allergies: ciprofloxacin (Verified Allergy, Unknown, 11/07/18) Triage Vital Signs Vital Signs Date Time Temp Pulse Resp B/P (MAP) Pulse Ox O2 Delivery O2 Flow Rate FiO2 02/13/20 05:07 98.9 115 22 182/107 99 Room Air Vital signs reviewed: Yes Physical Exam CONSTITUTIONAL Constitutional: Present well-developed, Present ill appearing, Present other (foul-smelling) HENT HENT: Present normocephalic, Present atraumatic, Present oropharynx clear/moist, Present nose normal HENT L/R: Present left ext ear normal, Present right ext ear normal EYES Eyes: Reports PERRL, Reports conjunctivae normal NECK Neck: Present ROM normal PULMONARY Pulmonary: Present effort normal, Present breath sounds normal CARDIOVASCULAR Cardiovascular: Present regular rhythm, Present heart sounds normal, Present capillary refill normal, Present normal rate GASTROINTESTINAL Abdominal: Present soft, Present bowel sounds normal, Present tender GENITOURINARY Genitourinary: Present exam deferred SKIN Skin: Present warm, Present dry MUSCULOSKELETAL Musculoskeletal: Present ROM normal NEUROLOGICAL Neurological: Present alert, Present oriented x 3, Present no gross motor or sensory deficits PSYCHOLOGICAL Psychological: Present mood/affect normal, Present judgement normal Results Laboratory Lab results reviewed: Yes Imaging Imaging results reviewed: Yes Procedures 12 Lead ECG Interpretation ECG Interpretation : ECG: ECG 1 Prior ECG tracings: reviewed Rhythm: sinus tachycardia Rate: tachycardia QRS axis: normal ST segments normal: Yes T waves normal: Yes Clinical Impression: abnormal ECG Assessment & Plan Medical Decision Making MDM 59-year-old female arrives to the ED with complaints of abdominal pain. Patient is homeless, very foul-smelling. Lab work and CT imaging ordered. Case signed out to Dr. Lopez to follow-up lab work and imaging ultimate disposition of patient. Assessment & Plan Final Impression: (1) Abdominal pain Last Vital Signs Date Time Temp Pulse Resp B/P (MAP) Pulse Ox O2 Delivery O2 Flow Rate FiO2 02/13/20 05:07 98.9 115 22 182/107 99 Room Air Home Meds Active Scripts Sulfamethoxazole/Trimethoprim (BACTRIM DS TABLET) 1 Each Tablet, 1 TAB PO BID for 5 Days, TAB Prov:PIOTR PETER M EXPRESSIVE MUSIC THERAPIST 11/10/18 Albuterol Sulf* (PROAIR HFA INHALER*) 8.5 Gm Inh, 1 INH INH Q8H PRN for SHORTNESS OF BREATH, #1 Prov:PIOTR PETER M EXPRESSIVE MUSIC THERAPIST 11/09/18 Metoclopramide Hcl (REGLAN) 10 Mg Tablet, 10 MG PO ACHS for 30 Days Prov:PIOTR PETER M EXPRESSIVE MUSIC THERAPIST 11/09/18 Pantoprazole Sodium* (PROTONIX) 40 Mg Tablet.dr, 40 MG PO ACB for 30 Days, TAB Prov:PIOTR PETER M EXPRESSIVE MUSIC THERAPIST 11/09/18 Sucralfate (SUCRALFATE) 1 G/10 Ml Susp, 1 G PO ACHS for 30 Days Prov:PIOTR PETER EXPRESSIVE MUSIC THERAPIST 11/09/18 Medications in the ED Sodium Chloride 1,000 ml @ 0 mls/hr Q0M STAT IV ; Start 02/13/20 at 05:06; Stop 02/13/20 at 05:07 Ondansetron HCl 4 mg NOW STAT IV ; Start 02/13/20 at 05:06; Stop 02/13/20 at 05:07 JACQUELINE LAST DO Feb 13, 2020 05:49
--- NOTE | 2020-02-13 06:00 | NUR ---
NOTIFIED OF BG
[2020-02-13 06:02] LABS: ALBUMIN 4.3 g/dL (3.5-5.0); ALBUMIN/GLOBULIN RATIO 1.1 (0.8-2.0); ANION GAP 26.3 mmol/L (8-16); CALCIUM 9.8 mg/dL (8.4-10.2); CREATININE, SERUM 1.69 mg/dL (0.57-1.11); POTASSIUM 3.3 mmol/L (3.5-5.1)
[2020-02-13] MEDS ORDERED: CEFEPIME 1GM/NS 0.9% 50 ML 50 ML IV STA (06:02)
[2020-02-13 06:04] LABS: CREATINE KINASE MB 4.3 ng/mL (0-5.0)
[2020-02-13 06:36] LABS: COLOR,URINE YELLOW (YELLOW)
[2020-02-13 06:37] LABS: CLARITY,URINE CLEAR (CLEAR); KETONES,URINE NEGATIVE (NEGATIVE); LEUKOCYTE ESTERASE ,URINE TRACE (NEGATIVE); NITRITE,URINE POSITIVE (NEGATIVE); PROTEIN,URINE DIPSTICK 2+ (NEGATIVE); URINE UROBILINOGEN 0.2 mg/dL (0.2 - 1)
[2020-02-13 06:38] LABS: BILIRUBIN,URINE NEGATIVE (NEGATIVE)
--- NOTE | 2020-02-13 06:40 | NUR ---
TRANSFER INITIATED TO [facility], SPOKE TO ANDRÉS
[2020-02-13 06:45] LABS: BACTERIA,URINE MANY /HPF; EPITHELIAL CELLS,URINE FEW /LPF; RBC,URINE 0-5 /HPF (0-5)
[2020-02-13] MEDS ORDERED: SODIUM CHLORIDE 0.9% 1000ML 1,000 ML IV SCH (06:45)
[2020-02-13] MEDS ORDERED: DEXTROSE 5%/0.45% SOD CHL 1,000 ML IV SCH (06:45)
[2020-02-13] MEDS ORDERED: POTASSIUM CHLORIDE 20MEQ/100ML 100 ML INJ PRN (06:45)
--- NOTE | 2020-02-13 06:50 | NUR ---
Report received from Alphonso DIANE
[2020-02-13] MEDS ORDERED: SODIUM CHLORIDE 0.9% 50ML 50 ML ONE (06:53)
[2020-02-13] MEDS ORDERED: IOPAMIDOL 370 MG/ML 200 ML INFUS..BTL INJ ONE (06:53)
--- NOTE | 2020-02-13 06:55 | NUR ---
WALKING ROUNDS WITH LIZET DIANE
--- NOTE | 2020-02-13 06:58 | NUR ---
patient to CT Scan at this time
[2020-02-13] MEDS ORDERED: INSULIN REGULAR, HUMAN 3ML VL 100 UNIT in SODIUM CHLORIDE 0.9% 100 ML 99 ML IV SCH ×2 (07:00)
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
--- NOTE | 2020-02-13 08:06 | Diagnostic Imaging Report ---
EXAM: CT Abdomen and Pelvis WITH contrast INDICATION: Abdominal pain, nausea, vomiting COMPARISON: Abdominal CT 11/07/2018 TECHNIQUE: Abdomen and pelvis were scanned utilizing a multidetector helical scanner from the lung base to the pubic symphysis after administration of IV contrast. Coronal and sagittal reformations were obtained. Routine protocol was performed. Scan was performed when during portal venous phase. IV CONTRAST: 100 mL of Isovue 370 ORAL CONTRAST: None COMPLICATIONS: None RADIATION DOSE: Total DLP: 303 mGy*cm Estimated effective dose: (DLP x 0.015 x size factor) mSv CTDIvol has been reviewed. It is below the limits set by the Radiation Protocol Committee (RPC). Dose modulation, iterative reconstruction, and/or weight based adjustment of the mA/kV was utilized to reduce the radiation dose to as low as reasonably achievable. FINDINGS: LINES and TUBES: None. LOWER THORAX: right basilar atelectasis. HEPATOBILIARY: No focal hepatic lesions. No biliary ductal dilation. GALLBLADDER: Distended, over 10 cm in long axis. No radio-opaque stones or sludge. No wall thickening. SPLEEN: No splenomegaly. PANCREAS: No focal masses. Mild pancreatic atrophy with compensatory subtle prominence of the pancreatic duct. ADRENALS: No adrenal nodules KIDNEYS/URETERS: Nonobstructive 1.5 cm right renal inferior pole calculus. Kidneys enhance symmetrically. No hydronephrosis. No solid mass lesions. Stable 1.9 cm left renal superior pole simple cyst. Right renal superior pole lobulation. GI TRACT: No abnormal distention, wall thickening, or evidence of bowel obstruction. Subtle gastric antral wall thickening and submucosal edema. Appendix is normal. PELVIC ORGANS/BLADDER: Unremarkable. LYMPH NODES: No lymphadenopathy. VESSELS: Vascular calcifications. PERITONEUM / RETROPERITONEUM: No free air or fluid. BONES: Degenerative changes. SOFT TISSUES: Unremarkable. IMPRESSION: 1. Nonobstructive 1.5 cm right renal inferior pole calculus. 2. Possible mild antral gastritis. 3. Distended gallbladder. Recommend right upper quadrant ultrasound. Signed by: Jhonny Westbrook DO on 02/13/2020 8:03 AM
--- NOTE | 2020-02-13 08:24 | NUR ---
DR. ZAVALETA SPOKE WITH DR. JAYESH COLLINS REGARDING TRANSFER. DR. ZAVALETA AWAITING CALL FROM ICU DOCTOR
--- NOTE | 2020-02-13 08:41 | Diagnostic Imaging Report ---
TECHNIQUE: Frontal view of the chest. INDICATION: ^Y ^abd pain ^[id number] ^[id number] COMPARISON: 01/02/2019 DISCUSSION: Limited evaluation due to portable technique. Lines and hardware: Multiple overlying EKG leads are noted. Heart and mediastinum: Cardiomediastinal silhouette and pulmonary vascularity are within normal limits. Thoracic aorta is slightly tortuous. Lungs and pleura: No focal airspace consolidation. No pleural effusion. No pneumothorax. Soft tissues and bones: No acute abnormality. IMPRESSION: Stable exam without acute intrathoracic process. Signed by: Robert Diane MD on 02/13/2020 8:37 AM
--- NOTE | 2020-02-13 08:51 | NUR ---
RADIOLOGY CALLED FOR DISC. PATIENT BEING TRASFERED TO [facility]
--- NOTE | 2020-02-13 08:58 | NUR ---
bedside glucose 354 mg/dl, notified, no changes to insulin drip settings per protocol
--- NOTE | 2020-02-13 08:58 | NUR ---
[facility] CALLED FOR TRANSPORT
--- NOTE | 2020-02-13 09:00 | NUR ---
COVID NEG. PER MO IN LAB
[2020-02-13 10:10] LABS: ANION GAP 18.1 mmol/L (8-16); CALCIUM 8.1 mg/dL (8.4-10.2); CREATININE, SERUM 1.18 mg/dL (0.57-1.11); MAGNESIUM 1.8 MG/DL (1.3-2.1); POTASSIUM 3.1 mmol/L (3.5-5.1)
--- NOTE | 2020-02-13 10:17 | NUR ---
[facility] at bedside
== END 2020-02-13 10:45 | disposition other institution (70) ==
LOC: ER 05:20
DX: R10.30 Lower abdominal pain, unspecified (principal); R11.2 Nausea with vomiting, unspecified; N20.0 Calculus of kidney; I10 Essential (primary) hypertension; E11.9 Type 2 diabetes mellitus without complications; Z11.59 Encounter for screening for other viral diseases; F17.210 Nicotine dependence, cigarettes, uncomplicated
CPT/HCPCS: 36415; 71045; 74177; 80048; 80053; 81001; 82550; 82553; 82948; 83605; 83690; 83735; 84484; 85025; 87040; 93005; 99285; J0692; J1817; J2405; J7030; Q9967; U0002